=== PATIENT | female | born 1955 | race Caucasian/White ===

== ENCOUNTER 2025-01-05 19:35 | Inpatient (IN) | payer MEDICARE, SELFPAY ==
[2025-01-05] VITALS (7 sets, daily range): BP systolic 112–145; BP diastolic 55–98; PULSE 97–100; RESP 14–16; TEMP 36.3; O2SAT 92–98; BMI 40.9
--- NOTE | 2025-01-05 20:32 | CT_ITS ---
PROCEDURE: ABDOMEN/PELVIS WITHOUT CONT 01/05/2025 REASON FOR EXAM: KIDNEY STONE TECHNIQUE: Abdomen and pelvis CT without intravenous contrast. Noncontrast technique limits evaluation of the abdominal and pelvic viscera. Coronal and Sagittal reconstruction series were provided. One or more dose reduction techniques were used (e.g., Automated exposure control, adjustment of the mA and/or kV according to patient size, use of iterative reconstruction technique). PATIENT PREPARATION: Per protocol ORAL CONTRAST TYPE: None. COMPARISON: None. FINDINGS: Lung bases: Bibasilar atelectasis. Coronary artery calcifications. Liver: The unopacified liver is normal in size. No biliary ductal dilation. Gallbladder: No radiopaque stones within the gallbladder. Spleen: Normal in size. Pancreas: The unopacified pancreas is unremarkable. Adrenals: No adrenal mass. Kidneys: Obstructing stone within the proximal left ureter measuring approximately 1.2 cm (coronal image 69) with mild hydroureteronephrosis. Moderate left perinephric stranding. Unremarkable right kidney. Bladder: Grossly unremarkable. Reproductive Organs: Surgically absent. Bowel: The bowel loops are normal caliber. No ascites or pneumoperitoneum. Moderate distal colonic diverticulosis. No inflammatory mass in the expected region of the appendix. Lymph nodes: No suspicious lymphadenopathy. Vasculature: Moderate calcific plaque of the aortoiliac vessels. Bones: Thoracolumbar spondylosis. Prior total right hip arthroplasty. CT/Abdomen/Pelvis without Cont IMPRESSION: Obstructing stone within the proximal left ureter with mild hydroureteronephros is. Reading Location: [id number]
--- NOTE | 2025-01-05 20:32 | EX.ED.DYSGE1 ---
HPI History of Present Illness Chief Complaint: Flank Pain Informant: patient Narrative Narrative: Patient is a 69-year-old female with known history of kidney stones, hypertension, obesity, hyperlipidemia and type 2 diabetes mellitus presenting with worsening right flank pain. She states the pain started 1 week ago and she has had intermittent left flank pain. It became worse today. She states it started get better on 9 AM. Her apply lidocaine to the area and that did seem to help a little bit. She took her home oxycodone (it sounds like something they had leftover) with no significant relief. She has had associated nausea and vomiting. She denies any radiation of the pain. Initially she tells me nothing makes the pain worse but then she notes it is also worse with movement. She denies any urinary symptoms. Denies any fever or chills. Denies any change in her bowel habits. No other complaints or concerns reported at this time. [facility] Medical History no medical history Home Medications ?Medication ?Instructions ?Recorded ?Last Taken ?Type aspirin 81 mg tablet,delayed 81 mg PO QHS 08/21/15 01/04/25 History release (Adult Low Dose Aspirin) hydrochlorothiazide 12.5 mg capsule 12.5 mg PO DAILY 08/21/15 01/05/25 History metformin 500 mg tablet 1,000 mg PO BIDCM dm 08/21/15 01/05/25 History omega-3 fatty acids-fish oil 340 1 ea PO DAILY 08/21/15 01/05/25 History mg-1,000 mg capsule (Fish Oil) simvastatin 40 mg tablet 40 mg PO QHS 08/21/15 01/04/25 History biotin 1 mg capsule 1 mg PO DAILY pain 01/05/25 01/05/25 History cholecalciferol (vitamin D3) 50 2,000 unit PO DAILY supplement 01/05/25 01/05/25 History mcg (2,000 unit) tablet (Vitamin D3) glimepiride 1 mg tablet 0.5 mg PO DAILY dm 01/05/25 01/05/25 History hydroxychloroquine 200 mg tablet 400 mg PO DAILY oa 01/05/25 01/05/25 History leucovorin calcium 5 mg tablet 5 mg PO QWEEK 01/05/25 01/01/25 History losartan 50 mg tablet 50 mg PO DAILY bp 01/05/25 01/05/25 History methotrexate sodium 2.5 mg tablet 25 mg PO QWEEK 01/05/25 01/01/25 History metoprolol succinate 50 mg 50 mg PO DAILY heart 01/05/25 01/05/25 History tablet,extended release 24 hr omeprazole 20 mg capsule,delayed 20 mg PO DAILY gerd 01/05/25 01/05/25 History release potassium chloride 10 mEq 10 meq PO DAILY supplment 01/05/25 01/05/25 History tablet,extended release prednisone 1 mg tablet 3 mg PO DAILY oa 01/05/25 01/05/25 History Allergy/AdvReac Type Severity Reaction Status Date / Time lisinopril AdvReac COUGH Verified 01/05/25 19:36 Family History no significant family his Surgical History no surgical history Social History Smoking Status: Former smoker ROS ROS ED Constitutional Constitutional ED: Reports sweats; Denies chills or fever(s) Cardiovascular Cardiovascular: Denies chest pain Respiratory/Chest Respiratory/Chest: Denies cough Gastrointestinal Gastrointestinal: Reports abdominal pain, nausea and vomiting; Denies constipation or diarrhea Genitourinary Genitourinary ED: Denies dysuria, hematuria or urinary frequency Musculoskeletal Musculoskeletal: Reports back pain Integumentary Denies rash Neurologic Neurologic: Denies paresthesias or weakness Hematologic/Lymphatic Hematologic/Lymphatic: Denies easy bleeding or easy bruising EXAM Physical Exam Const Vital Signs: 01/05/25 19:36 01/05/25 20:36 01/05/25 20:47 Temperature 97.4 F L Temperature Source Temporal Pulse Rate 97 99 Respiratory Rate 14 Blood Pressure 140/98 H 145/69 H Blood Pressure Mean 112 94 Pulse Ox 98 97 Oxygen Delivery Method Room Air Room Air 01/05/25 21:00 01/05/25 22:00 Temperature Temperature Source Pulse Rate 100 100 Respiratory Rate Blood Pressure 143/64 H 132/75 H Blood Pressure Mean 90 94 Pulse Ox 92 Oxygen Delivery Method Room Air Positive well nourished and well developed Constitutional Narrative: Patient uncomfortable appearing but nontoxic. General Appearance ED: well developed HEENT Reports moist mucous membranes Neck supple Chest Wall inspection of chest normal Resp normal respiratory effort and clear to auscultation bilaterally Cardio regular rate and regular rhythm Cardio Narrative: 2+ DP pulses present GI normal to inspection, nondistended, normoactive bowel sounds and non-tender GI Narrative: Patient points to her left upper quadrant closer to the mid axillary line as her area of pain. Auscultation: normoactive bowel sounds Palpation: soft; Negative for tender or guarding Back/Spine no CVA tenderness Thoracic Spine / Upper Back: Negative for thoracic spinal tenderness or paraspinal muscle tenderness Lumbar Spine / Lower Back: Negative for lumbar spinal tenderness Extremity normal to inspection General Extremety ED: Negative for edema General Extremity: Negative for edema Neuro oriented x3 Sensorium / Orientation: alert Motor Exam: Negative for general weakness Psych mental status grossly normal Skin no rashes or lesions noted and no wounds MDM MDM MDM Narrative Medical decision making narrative: Patient valuated for worsening left flank pain. Differential includes muscle skeletal pain, renal colic and pyelonephritis. She denies any bowel symptoms lower suspicion for GI cause. No overlying rash or lower suspicion for shingles. Patient given IV morphine, fluids and Zofran. Will obtain CT of the abdomen pelvis without contrast, CBC, BMP and urinalysis. CBC normal. BMP normal specifically shows normal creatinine. CT of the abdomen and pelvis shows a 1.2 cm obstructing stone in the proximal left ureter with mild hydronephrosis. Patient does have pain improvement with morphine. Discussed the case with the patient and her findings. Urinalysis still pending and she ask required a straight cath for urinalysis. Patient does not feel comfortable with outpatient follow-up and would like to be admitted. Given the size of her stone and likely need for instrumentation I think this is reasonable. Case discussed with urology, Dr. Berrios. He will accept the patient to his service. Urinalysis shows questionable UTI with 50-100 white blood cells and 2+ bacteria but there is also 25-50 red blood cells. No nitrates. Urine culture sent and patient started on IV Rocephin. She is redosed with morphine. Lab Data Labs: Laboratory Results - last 24 hr 01/05/25 01/05/25 20:35 22:35 WBC 9.5 RBC 3.91 L Hgb 12.5 Hct 37.0 MCV 94.6 MCH 32.0 MCHC 33.8 RDW Std Deviation 45.4 H RDW Coeff of [employer] 13.4 Plt Count 240 MPV 9.7 Immature Gran % (Auto) 0.500 Neut % (Auto) 92.0 H Lymph % (Auto) 4.9 L [place] % (Auto) 1.4 Eos % (Auto) 0.8 Baso % (Auto) 0.4 Absolute Neuts (auto) 8.7 H Absolute Lymphs (auto) 0.46 L Nucleated RBC % 0 Sodium 136 Potassium 3.9 Chloride 97 L Carbon Dioxide 24.7 Anion Gap 14 BUN 19 Creatinine 1.13 Estim Creat Clear Calc 61.72 Est GFR (MDRD) Non-Af 52 L BUN/Creatinine Ratio 16.5 Glucose 153 H Calcium 9.7 Urine Color Yellow Urine Clarity Sl. Cloudy Urine pH 6.0 Ur Specific [place] 1.020 Urine Protein 30 H Urine Glucose (UA) Normal Urine Ketones 5 H Urine Occult Blood 250 H Urine Nitrite Negative Urine Bilirubin Negative Urine Urobilinogen Normal Ur Leukocyte Esterase 100 H Urine RBC 25-50 SEEN Urine WBC 50-100 SEEN Ur Squamous Epith Cells 0 SEEN Urine Bacteria 2+ Urine Mucus 0 SEEN Radiography Diagnostic Testing: Clinical Impression(s) from Imaging Studies Abdomen/Pelvis CT 01/05/25 20:32 IMPRESSION: Obstructing stone within the proximal left ureter with mild hydroureteronephrosis. Reading Location: [id number] Discharge Plan Dx/Rx/DC Orders Clinical Impression: Hydronephrosis with renal calculous obstruction, Left flank pain Disposition Disposition: Acute Care [facility]
[2025-01-05] MEDS: 0.9% Normal Saline (1000mL) 1,000 ML 250 ML IV (20:39)
[2025-01-05] MEDS: Ondansetron 4 MG/2 ML Vial IV (20:39)
[2025-01-05] MEDS: morphine 8 MG/ML Syringe 6 MG IV (20:40)
[2025-01-05 20:53] LABS: Absolute Lymphocyte Count 0.46 X10^3/uL (0.83-4.51); Absolute Neutrophil Count 8.7 X10^3/uL (2.0-7.7); Basophil# 0.04 X10^3/uL; Basophil% 0.4 % (0-1); Eosinophil# 0.08 X10^3/uL; Eosinophils% 0.8 % (0-5); Hemoglobin 12.5 g/dL (12.0-15.0); Lymphocyte # 0.46 X10^3/ul (0.83-4.51); Lymphocyte % 4.9 % (19-41); Mean Corp Hgb Conc 33.8 g/dL (32-36); Mean Corpuscular Volume 94.6 fL (81-99); Mean Platelet Vol. 9.7 fl (6.2-12.0); Monocyte# 0.13 X10^3/uL; Monocyte% 1.4 % (0-10); NRBC Flagged by Analyzer 0 % (0-5); Neutrophil # 8.71 X10^3/uL (2.7-7.7); Platelet Count 240 K/mm3 (150-450); RBC Distribution Width CV 13.4 % (11.6-14.6); RBC Distribution Width SD 45.4 fl (35.1-43.9); Red Blood Count 3.91 M/mm3 (4.2-5.4); White Blood Count 9.5 K/mm3 (4.4-11.0)
[2025-01-05 21:10] LABS: Anion Gap 14 (5-15); BUN 19 mg/dL (4-19); BUN/Creat Ratio 16.5 RATIO (10-20); Calcium,Total 9.7 mg/dL (7.6-11.0); Carbon Dioxide 24.7 mmol/L (21.0-32.0); Chloride 97 mmol/L (98-108); Creatinine, Serum 1.13 mg/dL (0.70-1.20); EST Glomerular Filtration Rate 52 (>60); Estimated Creatinine Clearance 61.72 ml/min (50-250); Glucose 153 mg/dL (70-99); Potassium 3.9 mmol/L (3.3-5.1); Sodium Level 136 mmol/L (133-145)
[2025-01-05 22:45] LABS: Mucous, Urine 0 SEEN /hpf (<or=2+); Squamous Epithelial Cells - UA 0 SEEN /hpf (5-10)
[2025-01-05 22:48] LABS: Color, Urine Yellow (Yellow); Glucose, Dipstick Normal (Normal); Ketone-Dipstick 5 mg/dl (Negative); Leukocyte Esterase-Dipstick 100 /ul (Negative); Nitrite-Dipstick Negative (Negative); Occult Blood-Urine 250 /ul (Negative); Protein-Dipstick 30 mg/dl (Negative); Urine Bilirubin Dipstick Negative (Negative); Urine Clarity Sl. Cloudy (Clear); Urine Urobilinogen Normal (Normal)
[2025-01-05 22:57] LABS: Bacteria 2+ /hpf (None Seen)
[2025-01-05 22:59] LABS: White Blood Cells 50-100 SEEN /hpf (0-5)
[2025-01-05 23:01] LABS: Red Blood Cells-Urine 25-50 SEEN /hpf (0-5)
[2025-01-05] MEDS: Ketorolac 15 MG/ML Vial IV (23:29)
[2025-01-05] MEDS: Morphine 4 MG/ML Syringe IV (23:30)
[2025-01-06] VITALS (46 sets, daily range): BP systolic 66–202; BP diastolic 29–159; PULSE 81–129; RESP 18–30; TEMP 3.4–38.7; O2SAT 89–100; BMI 38.9
[2025-01-06] MEDS: 0.9% Normal Saline (1000mL) 1,000 ML 50 ML IV ×2 (01:47→10:41)
[2025-01-06 03:24] LABS: Hemoglobin A1c 6.2 % (<=5.6)
[2025-01-06 06:42] LABS: Bedside Glucose 123 mg/dL (74-106)
[2025-01-06] MEDS: Ketorolac 15 MG/ML Vial IV ×2 (08:07→16:00)
[2025-01-06] MEDS: 0.9% Saline Lock 10 ML Syringe IV (08:07)
--- NOTE | 2025-01-06 08:42 | PCM.HP.STD ---
HPI - General General Date of Admission: 01/06/25 Date of Service: 01/05/25 Chief Complaint: left obstructing kidney stone HPI Narrative SHAWN DIOP, is a 69 F who presents with severe pain due to a large left obstructiong kidney stone. plan to take to surgery today. [facility] Medical History HLD (hyperlipidemia) HTN (hypertension) Diabetes Osteoarthritis Sleep apnea Medical History no medical history Home Medications ?Medication ?Instructions ?Recorded ?Last Taken ?Type aspirin 81 mg tablet,delayed 81 mg PO QHS 08/21/15 01/04/25 History release (Adult Low Dose Aspirin) hydrochlorothiazide 12.5 mg capsule 12.5 mg PO DAILY 08/21/15 01/05/25 History metformin 500 mg tablet 1,000 mg PO BIDCM dm 08/21/15 01/05/25 History omega-3 fatty acids-fish oil 340 1 ea PO DAILY 08/21/15 01/05/25 History mg-1,000 mg capsule (Fish Oil) simvastatin 40 mg tablet 40 mg PO QHS 08/21/15 01/04/25 History biotin 1 mg capsule 1 mg PO DAILY pain 01/05/25 01/05/25 History cholecalciferol (vitamin D3) 50 2,000 unit PO DAILY supplement 01/05/25 01/05/25 History mcg (2,000 unit) tablet (Vitamin D3) glimepiride 1 mg tablet 0.5 mg PO DAILY dm 01/05/25 01/05/25 History hydroxychloroquine 200 mg tablet 400 mg PO DAILY oa 01/05/25 01/05/25 History leucovorin calcium 5 mg tablet 5 mg PO QWEEK 01/05/25 01/01/25 History losartan 50 mg tablet 50 mg PO DAILY bp 01/05/25 01/05/25 History methotrexate sodium 2.5 mg tablet 25 mg PO QWEEK 01/05/25 01/01/25 History metoprolol succinate 50 mg 50 mg PO DAILY heart 01/05/25 01/05/25 History tablet,extended release 24 hr omeprazole 20 mg capsule,delayed 20 mg PO DAILY gerd 01/05/25 01/05/25 History release potassium chloride 10 mEq 10 meq PO DAILY supplment 01/05/25 01/05/25 History tablet,extended release prednisone 1 mg tablet 3 mg PO DAILY oa 01/05/25 01/05/25 History Allergy/AdvReac Type Severity Reaction Status Date / Time lisinopril AdvReac COUGH Verified 01/05/25 19:36 Family History no significant family his Surgical History Hip joint replacement status Surgical History no surgical history Social History Smoking Status: Former smoker ROS Constitutional Constitutional: Denies chills, fever(s) or malaise Eyes Eyes: Denies blurry vision or change in vision ENT HEENT: Reports none Cardiovascular Cardiovascular: Denies chest pain or palpitations Respiratory/Chest Respiratory/Chest: Denies cough or shortness of breath with exertion Gastrointestinal Gastrointestinal: Denies abdominal pain, constipation or diarrhea Musculoskeletal Musculoskeletal: Denies back pain, joint stiffness or joint swelling Integumentary Integumentary: Denies dry skin, jaundice, lesions or rash Neurologic Neurologic: Denies confusion, syncope or weakness Psychiatric Psychiatric: Reports none; Denies anxiety or depression Endocrine Endocrinology: Denies excessive sweating, fatigue or flushing Hematologic/Lymphatic Hematologic/Lymphatic: Denies anemia, easy bleeding or easy bruising Vital Signs Vital Signs Vital Signs: 01/05/25 19:36 01/05/25 20:36 01/05/25 20:47 Temperature 97.4 F L Temperature Source Temporal Pulse Rate 97 99 Pulse Strength Respiratory Rate 14 Respiratory Effort Respiratory Depth Respiratory Pattern Blood Pressure 140/98 H 145/69 H Blood Pressure Mean 112 94 Blood Pressure Source Blood Pressure Position Blood Pressure Location Pulse Ox 98 97 Oxygen Delivery Method Room Air Room Air Oxygen Flow Rate (L/min) 01/05/25 21:00 01/05/25 22:00 01/05/25 23:00 Temperature Temperature Source Pulse Rate 100 100 99 Pulse Strength Respiratory Rate Respiratory Effort Respiratory Depth Respiratory Pattern Blood Pressure 143/64 H 132/75 H 112/55 L Blood Pressure Mean 90 94 74 Blood Pressure Source Blood Pressure Position Blood Pressure Location Pulse Ox 92 93 Oxygen Delivery Method Room Air Room Air Oxygen Flow Rate (L/min) 01/05/25 23:04 01/05/25 23:04 01/06/25 00:00 Temperature 97.4 F L 97.4 F L Temperature Source Oral Pulse Rate 97 97 93 Pulse Strength Respiratory Rate 16 16 Respiratory Effort Respiratory Depth Respiratory Pattern Blood Pressure 112/55 L 112/55 L 111/58 L Blood Pressure Mean 74 74 75 Blood Pressure Source Blood Pressure Position Blood Pressure Location Pulse Ox 93 93 Oxygen Delivery Method Room Air Oxygen Flow Rate (L/min) 01/06/25 01:04 01/06/25 01:12 01/06/25 05:42 Temperature 97.9 F 98 F Temperature Source Temporal Temporal Pulse Rate 89 81 Pulse Strength Respiratory Rate 20 H 18 Respiratory Effort Normal Non-Labored Respiratory Depth Normal Respiratory Pattern Normal Blood Pressure 103/59 L 113/57 L Blood Pressure Mean 73 75 Blood Pressure Source Monitor Monitor Blood Pressure Position Semi-Fowlers Semi-Fowlers Blood Pressure Location Left Forearm Left Forearm Pulse Ox 94 98 Oxygen Delivery Method Room Air Room Air Nasal Cannula Oxygen Flow Rate (L/min) 2 01/06/25 07:59 01/06/25 07:59 01/06/25 08:03 Temperature 98.7 F Temperature Source Oral Pulse Rate 83 Pulse Strength Normal (2+) Respiratory Rate 18 Respiratory Effort Normal Non-Labored Respiratory Depth Normal Respiratory Pattern Normal Blood Pressure 130/57 H Blood Pressure Mean 81 Blood Pressure Source Monitor Blood Pressure Position Semi-Fowlers Blood Pressure Location Right Forearm Pulse Ox 96 Oxygen Delivery Method Nasal Cannula Nasal Cannula Oxygen Flow Rate (L/min) 2 2 01/06/25 08:07 Temperature Temperature Source Pulse Rate Pulse Strength Respiratory Rate Respiratory Effort Respiratory Depth Respiratory Pattern Blood Pressure Blood Pressure Mean Blood Pressure Source Blood Pressure Position Blood Pressure Location Pulse Ox 95 Oxygen Delivery Method Nasal Cannula Oxygen Flow Rate (L/min) 2 Weight Weight: 112.774 kg Body Mass Index (BMI) 38.9 Physical Exam Const alert and oriented x3 General Appearance: cooperative HEENT normocephalic, head/scalp atraumatic, EAC's normal and TM's normal bilaterally Eyes PERRL and EOMs intact bilaterally Pupil: sluggish Neck no lymphadenopathy, supple and no JVD General: trachea midline Lymph Lymphatic: no lymphadenopathy noted, lymphedema and lymphadenopathy Resp normal respiratory effort, normal air movement and clear to auscultation bilaterally Cardio regular rate, regular rhythm and peripheral pulses 2+ throughout GI soft to palpation, non-tender and non-distended Extremity normal capillary refill and no clubbing, cyanosis or edema General Extremity: no tenderness to palpation of joints or extremities Skin no rashes or lesions noted General Skin Exam: turgor normal Lesions: no lesions Rashes: no rashes Neuro CN's II-XII intact bilaterally Speech: speech normal Motor Exam: strength 5/5 throughout; Negative for general weakness Psych thought process normal, cooperative and affect normal Appearance: appropriate Results Medical Records Data Attestation: I reviewed the patient's medical records Lab / Micro Data Attestation: I reviewed the patient's lab results. 01/05/25 20:35 01/05/25 20:35 Labs: Laboratory Results - last 24 hr 01/05/25 20:35: WBC 9.5, RBC 3.91 L, Hgb 12.5, Hct 37.0, MCV 94.6, MCH 32.0, MCHC 33.8, RDW Std Deviation 45.4 H, RDW Coeff of Kodak 13.4, Plt Count 240, MPV 9.7, Immature Gran % (Auto) 0.500, Neut % (Auto) 92.0 H, Lymph % (Auto) 4.9 L, [place] % (Auto) 1.4, Eos % (Auto) 0.8, Baso % (Auto) 0.4, Absolute Neuts (auto) 8.7 H, Absolute Lymphs (auto) 0.46 L, Nucleated RBC % 0, Sodium 136, Potassium 3.9, Chloride 97 L, Carbon Dioxide 24.7, Anion Gap 14, BUN 19, Creatinine 1.13, Estim Creat Clear Calc 61.72, Est GFR (MDRD) Non-Af 52 L, BUN/Creatinine Ratio 16.5, Glucose 153 H, Hemoglobin A1c 6.2 H, Calcium 9.7 01/05/25 22:35: Urine Color Yellow, Urine Clarity Sl. Cloudy, Urine pH 6.0, Ur Specific [place] 1.020, Urine Protein 30 H, Urine Glucose (UA) Normal, Urine Ketones 5 H, Urine Occult Blood 250 H, Urine Nitrite Negative, Urine Bilirubin Negative, Urine Urobilinogen Normal, Ur Leukocyte Esterase 100 H, Urine RBC 25-50 SEEN, Urine WBC 50-100 SEEN, Ur Squamous Epith Cells 0 SEEN, Urine Bacteria 2+, Urine Mucus 0 SEEN 01/06/25 06:21: POC Glucose 123 H Imaging Radiology Impression Abdomen/Pelvis CT 01/05/25 20:32 IMPRESSION: Obstructing stone within the proximal left ureter with mild hydroureteronephrosis. Reading Location: [id number] Assessment & Plan Assessment/Plan (1) Left flank pain: (2) Hydronephrosis with renal calculous obstruction: PLAN: Plan to take to surgery today for cystoscopy left ureteroscopy laser lithotripsy of stone and stent placement
--- NOTE | 2025-01-06 08:49 | DCINST_ITS ---
Discharge Instructions Diet Discharge Diet: No restrictions DC O2, CPAP, BIPAP needs Home O2 Discharge instructions: No Dressing / Incision Discharge Activity: Return to Normal Activity and May Not Drive (while taking narcotic pain medications.) Dressing / Incision Call your doctor if you observe: Fever of 101 or Higher Follow Up Care Please Follow Up With: Adithya Berrios MD When: Call [phone] for an appointment to remove stent in 7 -10 days Test Results: Test results from this visit will be discussed in further detail at your follow- up appointment, if applicable. Discharge Plan Admission Admit Date/Time: 01/06/25 00:26 Primary Reason for Your Visit: laser stone and stent Attending Provider: Adithya Berrios Primary Care Provider: Malick Mccoy Discharge Orders/Prescriptions Prescriptions: New ibuprofen 600 mg tablet 600 mg PO Q6H PRN (Reason: pain) Qty: 20 0RF acetaminophen 500 mg capsule 500 mg PO Q4H PRN (Reason: pain) Qty: 20 0RF phenazopyridine [Pyridium] 100 mg tablet 100 mg PO TID PRN (Reason: burning) Qty: 14 0RF Continued metformin 500 MG tablet 1,000 mg PO BIDCM Patient Comments: lowers blood sugar aspirin [Adult Low Dose Aspirin] 81 MG tablet,delayed release (DR/EC) 81 mg PO QHS Patient Comments: blood thinner simvastatin 40 MG tablet 40 mg PO QHS Patient Comments: lowers cholesterol hydrochlorothiazide 12.5 MG capsule 12.5 mg PO DAILY Patient Comments: blood pressure Fish Oil 1 EACH capsule 1 ea PO DAILY Patient Comments: supplement glimepiride 1 mg tablet 0.5 mg PO DAILY losartan 50 mg tablet 50 mg PO DAILY methotrexate sodium 2.5 mg tablet 25 mg PO QWEEK Patient Comments: taking every Mon for imflammatory arthritis hydroxychloroquine 200 mg tablet 400 mg PO DAILY potassium chloride 10 mEq tablet extended release 10 meq PO DAILY prednisone 1 mg tablet 3 mg PO DAILY omeprazole 20 mg capsule,delayed release(DR/EC) 20 mg PO DAILY metoprolol succinate 50 mg tablet extended release 24 hr 50 mg PO DAILY leucovorin calcium 5 mg tablet 5 mg PO QWEEK Patient Comments: Take on wednesdays cholecalciferol (vitamin D3) [Vitamin D3] 50 mcg (2,000 unit) tablet 2,000 unit PO DAILY biotin 1 mg capsule 1 mg PO DAILY Referrals / Follow Up: Malick Mccoy MD [Primary Care Provider] - Disposition Disposition (needs filled in before D/C Order can be placed): Home, Self Care
--- NOTE | 2025-01-06 09:41 | PRE.ANES_ITS ---
ASA Classification* ASA Classification ASA Classification: 3 and E Assessment & Plan Anesthesia* Anesthesia Assessment Anesthesia Assessment: Discussed sedation and/or anesthesia options, risks, benefits, and alternatives with patient/parents/legal guardian/POA. Questions invited. The patient/parents/legal guardian/POA seems to understand and agrees to proceed with anesthesia plan. Reviewed the physical assessment, medical history, allergy history and patient home medications list prior to surgery/procedure/anesthetic and documented any changes. Performed airway and anesthesia risk assessments. Anesthesia Type Anesthesia Type: General Anesthesia Focused Assessment* Temperature: 98.7 F Pulse Rate: 83 Blood Pressure: 130/57 Respiratory Rate: 18 Pulse Ox: 95 Oxygen Flow Rate (L/min): 2 Airway Assessment Mouth opens: >3 cm Mallampati Score: II Focused Labs Anesthesia Preop lab: CBC WBC 9.5 K/mm3 (4.4-11.0) 01/05/25 20:35 01/05/25 RBC 3.91 M/mm3 (4.2-5.4) L 01/05/25 20:35 01/05/25 Hgb 12.5 g/dL (12.0-15.0) 01/05/25 20:35 01/05/25 Hct 37.0 % (37-47) 01/05/25 20:35 01/05/25 Plt Count 240 K/mm3 (150-450) 01/05/25 20:35 01/05/25 CHEMISTRY Potassium 3.9 mmol/L (3.3-5.1) 01/05/25 20:35 01/05/25 Sodium 136 mmol/L (133-145) 01/05/25 20:35 01/05/25 BUN 19 mg/dL (4-19) 01/05/25 20:35 01/05/25 Creatinine 1.13 mg/dL (0.70-1.20) 01/05/25 20:35 01/05/25 Glucose 153 mg/dL (70-99) H 01/05/25 20:35 01/05/25 POC Glucose 123 mg/dL (74-106) H 01/06/25 06:21 01/06/25 COAG Pre-Assessment Diagnosis/Proposed Procedure Planned Operative Procedure(s): Cysto, Laser ureteral stone stent Anesthesia History Anesthesia History - supervisor powdered sugar: Anesthesia History - supervisor powdered sugar Hx Hospitalization Any Problems With Anesthesia No 01/06/25 01:45 Cholinesterase deficiency No 01/06/25 01:45 You/Your Family Experience No 01/06/25 01:45 fever (hyperthermia) with Relationship Recent Exposure to Contagious No 01/06/25 01:45 Disease Does patient have nerve No 01/06/25 01:45 stimulator Patient instructed to have device shut off --Does patient have Pacemaker No 01/06/25 04:40 or ICD? When Was Last Pacemaker Check QUESTION #4 FULL TEXT: You/Your Family Experience fever (hyperthermia) with Anesthesia Last Oral Intake Last Oral intake: Last Oral Intake NPO since 00:00 01/06/25 04:40 Meds taken in AM with sips of water? Meds patient instructed to take am of surgery PONV PONV - supervisor powdered sugar: PONV - supervisor powdered sugar Female HX of Motion Sickness HX of N/V After Surgery Non-Smoker Duration of Surgery greater than 60 minutes Number of Risk Factors PONV Score Height & Weight Height & Weight: Anesthesia: Height & Weight Height 5 ft 7 in 01/06/25 04:40 Weight: 112.774 kg 01/06/25 04:40 Body Mass Index (BMI) 38.9 01/06/25 04:40 Respiratory Assessment Respiratory Assessment - supervisor powdered sugar: Respiratory Tract Infection Hx - supervisor powdered sugar Hx Respiratory Tract Infection No 01/06/25 01:45 STOP Sleep Apnea STOP Sleep Apnea - supervisor powdered sugar: STOP Sleep Apnea - supervisor powdered sugar Hx Hypertension Yes 01/06/25 01:02 Hx Sleep Apnea Yes 01/06/25 01:02 CPAP Yes 01/06/25 01:02 BIPAP No 01/06/25 01:02 Do you snore loudly (louder than talking or can be heard Do you often feel tired/ fatigued/ sleepy during daytime? Has anyone observed you stop breathing during sleep? STOP Results Positive 01/06/25 01:02 QUESTION #5 FULL TEXT : Do you snore loudly (louder than talking or can be heard through closed doors)? Tobacco Use History Tobacco Use History - supervisor powdered sugar: Tobacco Use History - supervisor powdered sugar Tobacco Use Smoking Status Former smoker 01/06/25 01:02 Hx Tobacco Use No 01/06/25 01:02 Years Smoking Packs Smoked per Day Smoking Cessation Date was No - quit smoking greater 01/06/25 01:02 within the last 15 years than 15 years ago Hx Smoking Cessation Date Hx Smoking Cessation No 01/06/25 01:02 Counseling Hematologic Medial History Hematologic Hx - supervisor powdered sugar: Hematologic Medical Hx - international affairs vice president Hx of Blood Transfusion No 01/06/25 01:02 Hx of Transfusion in last 3 No 01/06/25 01:02 Months Date of Last Transfusion (if within last 3 months) Ever experience any problems No 01/06/25 01:02 with transfusion(s)? Specify any problems Hx of Preganancy in last 3 No 01/06/25 01:02 Months Nurse Filling Out Transfusion DREDICK 01/06/25 01:02 & Questions: Date: 01/06/25 01/06/25 01:02 Time: 01:02 01/06/25 01:02 Patient unable to answer at this time (ie. confused, unrespo /Reproduction History /Reproductive History - supervisor powdered sugar: /Reproductive Hx- supervisor powdered sugar Hx Now No 01/06/25 01:45 Gestational Age (in weeks): EDC: Hx Hx Para Hx Section SAB No 01/06/25 01:45 Active Medications Active Medications: Current Medications Generic Name Dose Route Start Last Admin Trade Name Freq PRN Reason Stop Dose Admin Acetaminophen 500 mg 01/06/25 01:26 Acetaminophen 500 Mg Tablet PO Q4H PRN PRN Pain 1-10 or Fever Sodium Chloride 250 mls @ 15 mls/hr 01/06/25 00:53 IV .[id number] PRN Saline Flush Sodium Chloride 250 mls @ 15 mls/hr 01/06/25 00:53 IV .[id number] PRN Additional IVPB Infusion Sodium Chloride 1,000 mls @ 50 mls/hr 01/06/25 01:30 01/06/25 01:47 IV 50 mls/hr .Q20H NEHA Administration Ketorolac Tromethamine 15 mg 01/06/25 02:30 01/06/25 08:07 Ketorolac 15 Mg/Ml Vial IV 01/11/25 02:31 15 mg Q6H PRN PRN Administration Pain Score 1-10 Morphine Sulfate 2 mg 01/06/25 01:26 Morphine 2 Mg/Ml Syringe IV Q4H PRN PRN Pain Score 1-10 Ondansetron HCl 4 mg 01/06/25 01:26 Ondansetron 4 Mg/2 Ml Vial IV Q6H PRN PRN NAUSEA Sodium Chloride 10 - 40 ml 01/06/25 00:53 01/06/25 08:07 0.9% Saline Lock 10 Ml Syringe IV 10 ml UD PRN Administration SALINE FLUSH PFSH Medical History HLD (hyperlipidemia) HTN (hypertension) Diabetes Osteoarthritis Sleep apnea Medical History no medical history Home Medications ?Medication ?Instructions ?Recorded ?Last Taken ?Type aspirin 81 mg tablet,delayed 81 mg PO QHS 08/21/15 History release (Adult Low Dose Aspirin) hydrochlorothiazide 12.5 mg capsule 12.5 mg PO DAILY 0 08/21/15 01/05/25 History metformin 500 mg tablet 1,000 mg PO BIDCM dm 6 01/05/25 History omega-3 fatty acids-fish oil 340 1 ea PO DAILY 6 01/05/25 History mg-1,000 mg capsule (Fish Oil) simvastatin 40 mg tablet 40 mg PO QHS 08/21/15 History biotin 1 mg capsule 1 mg PO DAILY pain 01/05/25 01/05/25 History cholecalciferol (vitamin D3) 50 2,000 unit PO DAILY ramos pplement 01/05/25 01/05/25 History mcg (2,000 unit) tablet (Vitamin D3) glimepiride 1 mg tablet 0.5 mg PO DAILY dm 01/05/25 01/05/25 History hydroxychloroquine 200 mg tablet 400 mg PO DAILY oa 01/05/25 History leucovorin calcium 5 mg tablet 5 mg PO QWEEK 01/05/25 01/01/25 History losartan 50 mg tablet 50 mg PO DAILY bp 01/05/25 0 01/05/25 History methotrexate sodium 2.5 mg tablet 25 mg PO QWEEK 01/0501/01/25 History metoprolol succinate 50 mg 50 mg PO DAILY heart 01/05/25 History tablet,extended release 24 hr omeprazole 20 mg capsule,delayed 20 mg PO DAILY gerd 0 01/05/25 01/05/25 History release potassium chloride 10 mEq 10 meq PO DAILY supplment 01/05/25 History tablet,extended release prednisone 1 mg tablet 3 mg PO DAILY oa 01/05/25 History acetaminophen 500 mg capsule 500 mg PO Q4H PRN pain #2 0 caps 01/06/25 Unknown Rx ibuprofen 600 mg tablet 600 mg PO Q6H PRN pain #20 t abs 01/06/25 Unknown Rx phenazopyridine 100 mg tablet 100 mg PO TID PRN burnin g #14 tabs 01/06/25 Unknown Rx (Pyridium) Allergy/AdvReac Type Severity Reaction Status Date / Time lisinopril AdvReac COUGH Verified 01/05/25 19:36 Family History no significant family his Surgical History Hip joint replacement status Surgical History no surgical history Social History Smoking Status: Former smoker Review of Systems (Anesthesia) ROS Narrative System reviewed and no additional complaints, except as documented.
--- NOTE | 2025-01-06 10:21 | PCM.OPRPT ---
Operative Report (Standard) Operative Information Date of Procedure: 01/06/25 Pre-Operative Diagnosis: Left proximal obstructing ureteral calculus Post-Operative Diagnosis: The same Surgery/Procedure Performed: Cystoscopy left ureteroscopy, balloon dilation of the left ureter, left stent placement green chain off bearer: No Type of Anesthesia: General RN Documented Start/Stop Times: Operation Date: 01/06/25 11:10 Case Time Anesthesia Start 01/06/25 09:54 Into Room 01/06/25 09:54 Procedure Start 01/06/25 10:10 Procedure Start Time: 10:10 Procedure Stop Time: 10:22 Select all DRAINS/GRAFTS/IMPLANTS that apply: Drains Drain details: 6 x 26 stent Estimated Blood Loss: None Specimen collected: No Description of surgery: Patient was taken back to the operating room after smooth duction of anesthesia she was placed in dorsolithotomy position. Went into the bladder with a 21 Tamazight rigid cystourethroscope, drained the bladder identified the left ureteral orifice put a wire up the left ureter then put a balloon dilator balloon dilated the distal left ureter I then went up the left ureter with the ureteroscope once I got into the kidney left kidney the stone was pushed back into the kidney and within the kidney had murky infected looking urine so at this point decided not to laser the stone and then I backed out put a wire up in the left kidney and then placed a stent up on the left side. So successful stent placement the left side stone could be seen on x-ray urine looked infected so did not laser patient anesthetic reversed taken back to the PACU in good condition we will plan to send her home with antibiotics and will plan for lithotripsy later this week. Surgical Findings: Stone pushed up into the kidney the kidney urine looked infected so only place a stent Complications Complications: No Admit VTE Documentation VTE Present on Admission: No VTE Mechan Device Prophylaxis: SCD's VTE Pharm Prophylaxis ordered?: No
--- NOTE | 2025-01-06 10:41 | PCM.POST.ANE ---
Anesthesia: Postop Eval I Current Vital Signs Temperature: 97.8 F Pulse Rate: 110 Blood Pressure: 136/100 Respiratory Rate: 20 Pulse Ox: 96 Oxygen Delivery Method: Nasal Cannula Oxygen Flow Rate (L/min): 3 Assessment Airway patent: Yes Spontaneous unlabored respirations: Yes Mental status: Awake nausea: No Vomiting: No Anesthesia Complication: No Fluid Hydration Crystalloid volume administer (ml): 150 Total IV fluid infused: 150 Progress Note Anesthesia document: Postop Eval 1 completed: Yes
--- NOTE | 2025-01-06 10:43 | PCM.POSTANE2 ---
Anesthesia Postop Eval I Sum Postop Eval Completion status Anesthesia document: Postop Eval 1 completed: Yes Anesthesia Postop Eval I Summary Anesthesia Postop Eval I Summary: Anesthesia Postop Eval I: Assessment Summary Airway patent Yes 01/06/25 10:42 Spontaneous unlabored Yes 01/06/25 10:42 respirations Mental status Awake 01/06/25 10:42 nausea No 01/06/25 10:42 Vomiting No 01/06/25 10:42 Anesthesia Postop Eval I: Fluid Summary Crystalloid volume administer 150 01/06/25 10:42 (ml) Colloids volume administered ( ml) Blood Product volume administered (ml) Total IV fluid infused 150 01/06/25 10:42 Anesthesia Postop Eval I: Summary Notes Anesthesia Complication No 01/06/25 10:42 Anesthesia Complication Comment: Post-operative progress note Anesthesia: Postop Eval II Evaluation Mental status: Awake Pain Level: 0 nausea: No Vomiting: No
[2025-01-06 11:16] LABS: Bedside Glucose 103 mg/dL (74-106)
--- NOTE | 2025-01-06 11:33 | PN.URO_ITS ---
Subjective Subjective Urine was infected, so only the stent was placed Postop the patient has lo is tachycardic and appears to be developing sepsis, consult to the hospitalist will put the patient and PCU for now. Discharge Start broad-spectrum antibiotics Objective Data Objective Data Vital Signs: Vital Signs Temp Pulse Resp BP Pulse Ox O2 Del Method O2 Flow Rate 97.8 F 120 H 24 H 172/85 H 92 Simple Mask 8 01/06/25 10:42 01/06/25 11:25 01/06/25 11:25 01/06/25 11:25 01/06/25 11:25 01/06/25 11:01/06/25 11:25 Oxygen Flow Rate (L/min) 8 Oxygen Delivery Method Simple Mask Weight: 112.774 kg Body Mass Index (BMI) 38.9 Intake & Output: Intake and Output for Last 24 Hours 01/04/25 01/05/25 01/06/25 23:59 23:59 23:59 Intake Total 1999 Output Total 0 / 0 Balance 1999 Lab / Micro Data 01/05/25 20:35 01/05/25 20:35 Labs: Laboratory Results - last 24 hr 01/05/25 20:35: WBC 9.5, RBC 3.91 L, Hgb 12.5, Hct 37.0, MCV 94.6, MCH 32.0, MCHC 33.8, RDW Std Deviation 45.4 H, RDW Coeff of Kodak 13.4, Plt Count 240, MPV 9.7, Immature Gran % (Auto) 0.500, Neut % (Auto) 92.0 H, Lymph % (Auto) 4.9 L, [place] % (Auto) 1.4, Eos % (Auto) 0.8, Baso % (Auto) 0.4, Absolute Neuts (auto) 8.7 H, Absolute Lymphs (auto) 0.46 L, Nucleated RBC % 0, Sodium 136, Potassium 3.9, Chloride 97 L, Carbon Dioxide 24.7, Anion Gap 14, BUN 19, Creatinine 1.13, Estim Creat Clear Calc 61.72, Est GFR (MDRD) Non-Af 52 L, BUN/Creatinine Ratio 16.5, Glucose 153 H, Hemoglobin A1c 6.2 H, Calcium 9.7 01/05/25 22:35: Urine Color Yellow, Urine Clarity Sl. Cloudy, Urine pH 6.0, Ur Specific [place] 1.020, Urine Protein 30 H, Urine Glucose (UA) Normal, Urine Ketones 5 H, Urine Occult Blood 250 H, Urine Nitrite Negative, Urine Bilirubin Negative, Urine Urobilinogen Normal, Ur Leukocyte Esterase 100 H, Urine RBC 25- 50 SEEN, Urine WBC 50-100 SEEN, Ur Squamous Epith Cells 0 SEEN, Urine Bacteria 2+, Urine Mucus 0 SEEN 01/06/25 06:21: POC Glucose 123 H 01/06/25 10:57: POC Glucose 103 Radiography Diagnostic Testing: Radiology Impression Abdomen/Pelvis CT 01/05/25 20:32 IMPRESSION: Obstructing stone within the proximal left ureter with mild hydroureteronephrosis. Reading Location: [id number]
--- NOTE | 2025-01-06 11:44 | PCM.CONS.GEN ---
Assessment & Plan Assessment/Plan (1) Hydronephrosis with renal calculous obstruction: (2) Sepsis: PLAN: Plan Patient is a 69-year-old female who presented [facility] on 01/06/2025 for planned urology procedure. Medicine consulted postoperatively for medical management of suspected urosepsis. 1. Sepsis without shock secondary to acute pyelonephritis in setting of obstructive nephrolithiasis ? Urology primary. CT abdomen pelvis on 01/05 with 1.2 cm obstructing stone in left proximal ureter with mild hydroureteronephrosis. S/p cystoscopy with ureteral stent placement on 01/06; stone not removed due to infected appearing urine. Postoperatively developed sepsis with tachycardia, fever, MICHAEL, elevated total bilirubin and altered mentation. Treating for sepsis with 30 cc/kg of IV fluids and IV ceftriaxone for now. Follow-up urine culture. Monitor BP closely. 2. MICHAEL ? Creatinine 1.57 postoperatively, baseline around 1.1. Presume secondary to sepsis. Monitor BMP and urine output daily. De La Torre catheter placed for accurate I's and O's. 3. Elevated troponin level ? Initial troponin 85, repeat pending. Mild ST depressions noted in lateral leads on EKG. No chest pain noted. Strongly suspect demand ischemia secondary to sepsis. Follow-up repeat troponins. 4. Postoperative hypoxia ? Patient requiring up to 6 L nasal cannula postoperatively to maintain appropriate saturations. Was placed on nonrebreather as she is a mouth breather with saturations in the mid to high 90s. Suspect hypoxia is primarily due to poor respiratory drive in setting of recent anesthesia. Wean supplemental oxygen as able. Will need to monitor for volume overload/pulmonary edema in setting of sepsis fluids. Chronic medical conditions: ? Class II obesity with DEBBIE: BMI 38 on admit. Complicates hospital course, care and prognosis. Continue CPAP at night. ? Nonobstructive CAD, hypertension, hyperlipidemia: Continue home aspirin and statin. Holding home BP meds in setting of sepsis. ? Type 2 diabetes mellitus: Holding home oral medications. Will treat with sliding scale insulin with meals while inpatient, adjust as needed. ? RA: Continue home meds. ? GERD: Continue home PPI. DVT prophylaxis: Heparin subcu CODE STATUS: Full code, verified Total clinical time spent by myself addressing the patient's medical issues, reviewing all the data, and collaborating with patient's care team: 50 minutes. HPI Consult Data Date of Consult: 01/06/25 HPI Narrative Reason for Consultation: Urosepsis HPI Narrative: SHAWN DIOP, is a 69 F who presented to [facility] on 01/06/2025 for planned urology procedure. Medicine consulted postoperatively for medical management of suspected urosepsis. Patient was found on CT imaging on 01/05 to have an obstructing stone within the proximal left ureter with mild hydroureteronephrosis. Had cystoscopy done with Dr. Berrios today. During the procedure, he noted that the urine appeared quite infected; ureteral stent was placed but the stone was not removed. Postoperatively patient became tachycardic and febrile concerning for urosepsis. I saw the patient at bedside shortly after she arrived to the PCU from PACU. She was somewhat confused appearing but notably was alert and oriented x 3. She had been on 6 L nasal cannula in PACU to maintain appropriate oxygen saturations but was noted to have significant mouth breathing and was placed on nonrebreather in PCU. She was breathing comfortably on rebreather with oxygen saturations in the mid to high 90s for me. She currently denies any pain or discomfort. Patient's and other family members were present at bedside. They noted that patient had flank pain yesterday presumed secondary to the kidney stone but no infectious symptoms until today. No other new concerns at this time. [facility] Medical History HLD (hyperlipidemia) HTN (hypertension) Diabetes Osteoarthritis Sleep apnea Medical History no medical history Home Medications ?Medication ?Instructions ?Recorded ?Last Taken ?Type aspirin 81 mg tablet,delayed 81 mg PO QHS 08/21/15 01/04/25 History release (Adult Low Dose Aspirin) hydrochlorothiazide 12.5 mg capsule 12.5 mg PO DAILY 08/21/15 01/05/25 History metformin 500 mg tablet 1,000 mg PO BIDCM dm 08/21/15 01/05/25 History omega-3 fatty acids-fish oil 340 1 ea PO DAILY 08/21/15 01/05/25 History mg-1,000 mg capsule (Fish Oil) simvastatin 40 mg tablet 40 mg PO QHS 08/21/15 01/04/25 History biotin 1 mg capsule 1 mg PO DAILY pain 01/05/25 01/05/25 History cholecalciferol (vitamin D3) 50 2,000 unit PO DAILY supplement 01/05/25 01/05/25 History mcg (2,000 unit) tablet (Vitamin D3) glimepiride 1 mg tablet 0.5 mg PO DAILY dm 01/05/25 01/05/25 History hydroxychloroquine 200 mg tablet 400 mg PO DAILY oa 01/05/25 01/05/25 History leucovorin calcium 5 mg tablet 5 mg PO QWEEK 01/05/25 01/01/25 History losartan 50 mg tablet 50 mg PO DAILY bp 01/05/25 01/05/25 History methotrexate sodium 2.5 mg tablet 25 mg PO QWEEK 01/05/25 01/01/25 History metoprolol succinate 50 mg 50 mg PO DAILY heart 01/05/25 01/05/25 History tablet,extended release 24 hr omeprazole 20 mg capsule,delayed 20 mg PO DAILY gerd 01/05/25 01/05/25 History release potassium chloride 10 mEq 10 meq PO DAILY supplment 01/05/25 01/05/25 History tablet,extended release prednisone 1 mg tablet 3 mg PO DAILY oa 01/05/25 01/05/25 History acetaminophen 500 mg capsule 500 mg PO Q4H PRN pain #20 caps 01/06/25 Unknown Rx ciprofloxacin HCl 500 mg tablet 500 mg PO BID #14 tabs 01/06/25 Unknown Rx (Cipro) ibuprofen 600 mg tablet 600 mg PO Q6H PRN pain #20 tabs 01/06/25 Unknown Rx phenazopyridine 100 mg tablet 100 mg PO TID PRN burning #14 tabs 01/06/25 Unknown Rx (Pyridium) Allergy/AdvReac Type Severity Reaction Status Date / Time lisinopril AdvReac COUGH Verified 01/05/25 19:36 Family History no significant family his Surgical History Hip joint replacement status Surgical History no surgical history Social History Smoking Status: Former smoker ROS Constitutional Constitutional: Reports chills, fatigue and fever(s); Denies weakness Cardiovascular Cardiovascular: Denies chest pain Respiratory/Chest Respiratory/Chest: Denies cough, shortness of breath at rest or wheezing Gastrointestinal Gastrointestinal: Denies abdominal pain Genitourinary Genitourinary: Reports dysuria Musculoskeletal Musculoskeletal: Reports other Details: flank pain Physical Exam Const alert and oriented x3 Constitutional Narrative: Elderly female, class II obesity, A&Ox3 but intermittently confused and somewhat somnolent appearing, was able to answer questions with short appropriate responses, breathing comfortably on nonrebreather, otherwise laying back in bed fairly comfortably. General Appearance: cooperative HEENT normocephalic, head/scalp atraumatic, hearing grossly normal bilaterally and nasal mucous membranes and turbinates normal Eyes PERRL, EOMs intact bilaterally and conjunctivae normal Neck full ROM Chest inspection of chest normal Resp normal respiratory effort and no use of accessory muscles Resp Narrative: Breathing comfortably on nonrebreather. Mildly decreased breath sounds throughout with mild crackles in bilateral lung bases, no wheezing noted. Cardio no murmurs and peripheral pulses 2+ throughout Cardio Narrative: Tachycardic, regular rhythm. GI normal to inspection, nondistended, normoactive bowel sounds, soft to palpation, non-tender and non-distended Narrative: Mild left-sided flank tenderness noted. Bladder / Kidney Exam: bladder normal to palpation Back/Spine normal ROM Extremity normal to inspection, full ROM and no pedal edema Skin no rashes or lesions noted Lab / Micro Data 01/05/25 20:35 01/06/25 14:05 Labs: Laboratory Results - last 24 hr 01/05/25 20:35: WBC 9.5, RBC 3.91 L, Hgb 12.5, Hct 37.0, MCV 94.6, MCH 32.0, MCHC 33.8, RDW Std Deviation 45.4 H, RDW Coeff of Kodak 13.4, Plt Count 240, MPV 9.7, Immature Gran % (Auto) 0.500, Neut % (Auto) 92.0 H, Lymph % (Auto) 4.9 L, [place] % (Auto) 1.4, Eos % (Auto) 0.8, Baso % (Auto) 0.4, Absolute Neuts (auto) 8.7 H, Absolute Lymphs (auto) 0.46 L, Nucleated RBC % 0, Sodium 136, Potassium 3.9, Chloride 97 L, Carbon Dioxide 24.7, Anion Gap 14, BUN 19, Creatinine 1.13, Estim Creat Clear Calc 61.72, Est GFR (MDRD) Non-Af 52 L, BUN/Creatinine Ratio 16.5, Glucose 153 H, Hemoglobin A1c 6.2 H, Calcium 9.7 01/05/25 22:35: Urine Color Yellow, Urine Clarity Sl. Cloudy, Urine pH 6.0, Ur Specific [place] 1.020, Urine Protein 30 H, Urine Glucose (UA) Normal, Urine Ketones 5 H, Urine Occult Blood 250 H, Urine Nitrite Negative, Urine Bilirubin Negative, Urine Urobilinogen Normal, Ur Leukocyte Esterase 100 H, Urine RBC 25-50 SEEN, Urine WBC 50-100 SEEN, Ur Squamous Epith Cells 0 SEEN, Urine Bacteria 2+, Urine Mucus 0 SEEN 01/06/25 06:21: POC Glucose 123 H 01/06/25 10:57: POC Glucose 103 Imaging Radiology Impression Abdomen/Pelvis CT 01/05/25 20:32 IMPRESSION: Obstructing stone within the proximal left ureter with mild hydroureteronephrosis. Reading Location: [id number] Charges/Coding Visit Charges Inpatient E&M: 99540 Subs Hosp L3
--- NOTE | 2025-01-06 11:54 | SUR.PHASEI ---
Verbal report to Nell Campbell RN in PCU - PACU progress reported (temp 101.6, HR 128, 93% on 6Lsimple mask, IV fluids wide open and that Dr Roy will see pt on PCU) and informed that Rocephin has not been given yet. Unique in pharmacy informed that pt has been transferred to PCU 122 and to plz send Rocephin TADEO to PCU.
--- NOTE | 2025-01-06 12:24 | NURSING ---
Report called to Allyn in PCU. Pt transferred to PCU from PACU d/t increased HR and oxygen needs. Family aware of pt room change and sent to [id number]
[2025-01-06] MEDS: Ceftriaxone 1 GM/50 ML BAG IV ×2 (12:25→13:13)
--- NOTE | 2025-01-06 12:45 | EKG12_ITS ---
Test Reason : cp Blood Pressure : */* mmHG Vent. Rate : 124 BPM Atrial Rate : 124 BPM P-R Int : 150 ms QRS Dur : 78 ms QT Int : 312 ms P-R-T Axes : 52 -6 36 degrees QTcB Int : [address] & T wave abnormality, consider lateral ischemia Abnormal ECG When compared with ECG of 21-Aug-2015 12:23, Vent. rate has increased by 51 bpm Nonspecific T wave abnormality, worse in Inferior leads T wave inversion now evident in Anterior leads Confirmed by Clyde Blank ([id number]), supervising film or videotape editor JAME SANTORO ([id number]) on 01/13/2025 1:26:02 PM Referred By: Confirmed By: Clyde Blank
[2025-01-06] MEDS: 0.9% Normal Saline (1000mL) 1,000 ML 999 ML IV ×2 (12:56→13:42)
[2025-01-06] MEDS: Acetaminophen 325 MG Tablet 650 MG PO ×2 (13:01→19:02)
[2025-01-06 14:43] LABS: ALB/GLOB Ratio 1.8 RATIO (0.9-2.4); AST(SGOT) 23 U/L (<=31); Alanine Aminotransfer ALT/SGPT 17 U/L (<=34); Albumin, Serum 3.7 g/dL (3.4-4.8); Alkaline Phosphatase 116 U/L (35-104); Anion Gap 17 (5-15); BUN 27 mg/dL (4-19); BUN/Creat Ratio 17.3 RATIO (10-20); Calcium,Total 8.1 mg/dL (7.6-11.0); Carbon Dioxide 17.3 mmol/L (21.0-32.0); Chloride 104 mmol/L (98-108); Creatinine, Serum 1.57 mg/dL (0.70-1.20); EST Glomerular Filtration Rate 35 (>60); Globulin 2.1 g/dL (2.2-4.2); Glucose 104 mg/dL (70-99); Potassium 3.6 mmol/L (3.3-5.1); Protein, Total 5.7 g/dL (5.9-8.4); Sodium Level 137 mmol/L (133-145); Total Bilirubin 2.08 mg/dL (0.00-1.30)
[2025-01-06 14:44] LABS: Troponin T High Sensitivity 85 ng/L (<=14)
[2025-01-06] MEDS: Lactated Ringers 1,000 ML 999 ML IV (15:30)
[2025-01-06 16:13] LABS: Absolute Lymphocyte Count 0.15 X10^3/uL (0.83-4.51); Absolute Neutrophil Count 3.3 X10^3/uL (2.0-7.7); Basophil# 0.01 X10^3/uL; Basophil% 0.3 % (0-1); Eosinophil# 0.01 X10^3/uL; Eosinophils% 0.3 % (0-5); Hematocrit 28.6 % (37-47); Hemoglobin 9.5 g/dL (12.0-15.0); Lymphocyte # 0.15 X10^3/ul (0.83-4.51); Lymphocyte % 4.3 % (19-41); Mean Corp Hgb Conc 33.2 g/dL (32-36); Mean Corpuscular Hgb 32.1 pg (27.0-32.0); Mean Corpuscular Volume 96.6 fL (81-99); Mean Platelet Vol. 9.7 fl (6.2-12.0); Monocyte# 0.02 X10^3/uL; Monocyte% 0.6 % (0-10); NRBC Flagged by Analyzer 0 % (0-5); Neutrophil # 3.32 X10^3/uL (2.7-7.7); Neutrophil % 94.2 % (47-70); POSITIVE DIFFERENTIAL YES; POSITIVE MORPHOLOGY YES; Platelet Count 112 K/mm3 (150-450); RBC Distribution Width SD 49.1 fl (35.1-43.9); Red Blood Count 2.96 M/mm3 (4.2-5.4); White Blood Count 3.5 K/mm3 (4.4-11.0)
[2025-01-06 16:24] LABS: Troponin T High Sens 2 HR 111 ng/L (<=14)
[2025-01-06 16:50] LABS: Lactic Acid 2.4 mmol/L (0.0-2.0)
[2025-01-06 16:52] LABS: Differential Indicated SCAN CRITERIA MET
[2025-01-06 16:54] LABS: Anisocytosis 1+; Macrocytosis RARE; Ovalocyte 1+; Platelet Estimate SLT DEC (ADEQ)
[2025-01-06 16:55] LABS: Red Cell Morphology NORM C+C NORMAL (NORM C&C)
[2025-01-06 17:08] LABS: Bedside Glucose 79 mg/dL (74-106)
[2025-01-06 18:27] LABS: Troponin T High Sens 4 HR 105 ng/L (<=14)
--- NOTE | 2025-01-06 19:37 | NURSING ---
surgery brought pt to floor and pt with moaning resp rate on simple mask and only sats 92%. pt responsive to voice and answering questions to name and birthday. ext cool and dusky x4 with prolonged cap refill. pt with fever since or and pharm called for iv rocephin. iv ns hanging wide open at this time. unable to get ahold of discharge rn as off floor to stroke alert on ms3. pt placed on dash monitor for one to one.
[2025-01-06 20:02] LABS: Reflex Lactate? Y
[2025-01-06] MEDS: 0.9% Normal Saline (1000mL) 1,000 ML 125 ML IV (20:30)
[2025-01-06 20:53] LABS: Lactic Acid 1.6 mmol/L (0.0-2.0)
[2025-01-06] MEDS: LACTATED RINGERS 500 ML 999 ML IV (21:45)
[2025-01-06] MEDS: Ondansetron 4 MG/2 ML Vial IV (21:45)
[2025-01-06] MEDS: Atorvastatin Calcium 20 MG Tablet PO (22:20)
[2025-01-06] MEDS: Aspirin 81 MG TAB.CHEW PO (22:20)
[2025-01-07] VITALS (24 sets, daily range): BP systolic 80–122; BP diastolic 43–55; PULSE 77–104; RESP 14–25; TEMP 3.1–38.4; O2SAT 92–100
[2025-01-07 00:03] LABS: Bedside Glucose 79 mg/dL (74-106)
[2025-01-07] MEDS: LACTATED RINGERS 500 ML 999 ML IV (00:20)
[2025-01-07] MEDS: 0.9% Normal Saline (1000mL) 1,000 ML 125 ML IV (04:20)
[2025-01-07 06:49] LABS: Hematocrit 29.9 % (37-47); Hemoglobin 9.9 g/dL (12.0-15.0); Mean Corp Hgb Conc 33.1 g/dL (32-36); Mean Corpuscular Hgb 31.9 pg (27.0-32.0); Mean Corpuscular Volume 96.5 fL (81-99); Mean Platelet Vol. 9.7 fl (6.2-12.0); Platelet Count 115 K/mm3 (150-450); RBC Distribution Width CV 14.4 % (11.6-14.6); White Blood Count 15.6 K/mm3 (4.4-11.0)
[2025-01-07 07:12] LABS: Anion Gap 13 (5-15); BUN 30 mg/dL (4-19); BUN/Creat Ratio 17.9 RATIO (10-20); Calcium,Total 7.5 mg/dL (7.6-11.0); Carbon Dioxide 17.8 mmol/L (21.0-32.0); Chloride 106 mmol/L (98-108); Creatinine, Serum 1.65 mg/dL (0.70-1.20); EST Glomerular Filtration Rate 33 (>60); Glucose 97 mg/dL (70-99); Potassium 3.6 mmol/L (3.3-5.1); Sodium Level 137 mmol/L (133-145)
--- NOTE | 2025-01-07 07:20 | PCM.PN.GU ---
Subjective Subjective 69-year-old female presented with a kidney stone status post stent placement, stone was infected so was not lasered. Postop the patient did become septic and ran a fever required oxygen she is now in progressive care unit stable blood pressure stable oxygenation is better still has a fever still running a white count at 15,000 continue with broad-spectrum antibiotics ceftriaxone urine cultures pending Objective Data Objective Data Vital Signs: Vital Signs Temp Pulse Resp BP Pulse Ox O2 Del Method O2 Flow Rate 100.0 F H 81 25 H 112/53 L 98 Nasal Cannula 4 01/07/25 06:00 01/07/25 06:00 01/07/25 06:00 01/07/25 06:00 01/07/25 06:00 01/07/25 06:00 01/07/25 06:00 Oxygen Flow Rate (L/min) 4 Oxygen Delivery Method Nasal Cannula Weight: 112.774 kg Body Mass Index (BMI) 38.9 Intake & Output: Intake and Output for Last 24 Hours 01/05/25 01/06/25 01/07/25 23:59 23:59 23:59 Intake Total 5936.73 / 6036.73 1679.17 / 1679.17 Output Total 450 / 515 565 / 565 Balance 5486.73 / 5521.73 1114.17 / 1114.17 Lab / Micro Data 01/07/25 06:15 01/07/25 06:15 Labs: Laboratory Results - last 24 hr 01/06/25 10:57: POC Glucose 103 01/06/25 14:05: Sodium 137, Potassium 3.6, Chloride 104, Carbon Dioxide 17.3 L, Anion Gap 17 H, BUN 27 H, Creatinine 1.57 H, Estim Creat Clear Calc 43.20 L, Est GFR (MDRD) Non-Af 35 L, BUN/Creatinine Ratio 17.3, Glucose 104 H, Calcium 8.1, Total Bilirubin 2.08 H, AST 23, ALT 17, Alkaline Phosphatase 116 H, Troponin T High Sens 85 H*, Total Protein 5.7 L, Albumin 3.7, Globulin 2.1 L, Albumin/Globulin Ratio 1.8 01/06/25 15:55: WBC 3.5 L, RBC 2.96 L, Hgb 9.5 L, Hct 28.6 L, MCV 96.6, MCH 32.1 H, MCHC 33.2, RDW Std Deviation 49.1 H, RDW Coeff of Kodak 14.0, Plt Count 112 L, MPV 9.7, Immature Gran % (Auto) 0.300, Neut % (Auto) 94.2 H, Lymph % (Auto) 4.3 L, Garfield % (Auto) 0.6, Eos % (Auto) 0.3, Baso % (Auto) 0.3, Absolute Neuts (auto) 3.3, Absolute Lymphs (auto) 0.15 L, Nucleated RBC % 0, Platelet Estimate SLT DEC, RBC Morphology NORM C+C, Anisocytosis 1+, Macrocytosis RARE, Ovalocytes 1+, Lactic Acid 2.4 H*, Troponin T Hi Sens 2 Hr 111 H* 01/06/25 16:20: POC Glucose 79 01/06/25 18:03: Troponin T Hi Sens 4Hr 105 H* 01/06/25 20:10: Lactic Acid 1.6 01/06/25 23:43: POC Glucose 79 01/07/25 06:15: WBC 15.6 H, RBC 3.10 L, Hgb 9.9 L, Hct 29.9 L, MCV 96.5, MCH 31.9, MCHC 33.1, RDW Std Deviation 50.0 H, RDW Coeff of Kodak 14.4, Plt Count 115 L, MPV 9.7, Sodium 137, Potassium 3.6, Chloride 106, Carbon Dioxide 17.8 L, Anion Gap 13, BUN 30 H, Creatinine 1.65 H, Estim Creat Clear Calc 41.10 L, Est GFR (MDRD) Non-Af 33 L, BUN/Creatinine Ratio 17.9, Glucose 97, Calcium 7.5 L
[2025-01-07] MEDS: 0.9% Saline Lock 10 ML Syringe IV ×3 (08:28→16:50)
--- NOTE | 2025-01-07 08:33 | EKG12_ITS ---
Test Reason : TIGHTNESS Blood Pressure : */* mmHG Vent. Rate : 90 BPM Atrial Rate : 90 BPM P-R Int : 150 ms QRS Dur : 84 ms QT Int : 420 ms P-R-T Axes : 45 -4 25 degrees QTcB Int : 513 ms Normal sinus rhythm Low voltage QRS Nonspecific ST abnormality -BASELINE ARTIFACT Prolonged QT Abnormal ECG When compared with ECG of 06-Jan-2025 12:47, MANUAL COMPARISON REQUIRED DATA IS UNCONFIRMED Confirmed by Clyde Blank ([id number]), senior editor JAME SANTORO ([id number]) on 01/13/2025 1:20:24 PM Referred By: ELMER Confirmed By: Clyde Blank
[2025-01-07] MEDS: Nitroglycerin (INPATIENT USE) 0.4 MG TAB.SUBL SL (09:41)
[2025-01-07] MEDS: Pantoprazole Sodium 20 MG Tablet PO (09:48)
[2025-01-07] MEDS: predniSONE 1 MG Tablet 3 MG PO (09:48)
[2025-01-07] MEDS: Cholecalciferol (VIT D3) 25 MCG TABLET (1,000 UNITS) 50 MCG PO (09:49)
[2025-01-07] MEDS: Heparin Injection (Vial) 5,000 UNIT/ML VIAL 5000 UNIT SC ×2 (09:49→22:31)
[2025-01-07] MEDS: Hydroxychloroquine 200 MG Tablet 400 MG PO (09:49)
[2025-01-07] MEDS: Ceftriaxone 2 GM in 0.9% Normal Saline (50mL MB+) 50 ML IV (11:27)
--- NOTE | 2025-01-07 11:36 | PCM.PN.HOSP ---
Reason for Visit Reason for Visit: Diagnoses Sepsis, unspecified organism (01/06/25) Hydronephrosis with renal and ureteral calculous obstruction (01/06/25) Unspecified abdominal pain (01/06/25) Subjective Subjective Saw patient at bedside this morning. Patient was mildly fatigued appearing but otherwise sitting up comfortably in bedside chair, conversing normally and in no acute distress. Moderately improved compared to yesterday. She reports only mild lower abdominal/flank pain today. Denies any fevers or chills today. No other new concerns at this time. Objective Data Objective Data Vital Signs: Vital Signs Temp Pulse Resp BP Pulse Ox O2 Del Method O2 Flow Rate 100.4 F H 94 24 H 101/52 L 93 Nasal Cannula 2 01/07/25 09:00 01/07/25 09:41 01/07/25 09:00 01/07/25 09:41 01/07/25 09:34 01/07/25 09:00 01/07/25 09:58 Oxygen Flow Rate (L/min) 2 Oxygen Delivery Method Nasal Cannula Weight: 112.774 kg Body Mass Index (BMI) 38.9 Intake & Output: Intake and Output for Last 24 Hours 01/05/25 01/06/25 01/07/25 23:59 23:59 23:59 Intake Total 5936.73 / 6036.73 2195.84 / 2195.84 Output Total 450 / 515 565 / 565 Balance 5486.73 / 5521.73 1630.84 / 1630.84 Lab / Micro Data 01/07/25 06:15 01/07/25 06:15 Labs: Laboratory Results - last 24 hr 01/06/25 14:05: Sodium 137, Potassium 3.6, Chloride 104, Carbon Dioxide 17.3 L, Anion Gap 17 H, BUN 27 H, Creatinine 1.57 H, Estim Creat Clear Calc 43.20 L, Est GFR (MDRD) Non-Af 35 L, BUN/Creatinine Ratio 17.3, Glucose 104 H, Calcium 8.1, Total Bilirubin 2.08 H, AST 23, ALT 17, Alkaline Phosphatase 116 H, Troponin T High Sens 85 H*, Total Protein 5.7 L, Albumin 3.7, Globulin 2.1 L, Albumin/Globulin Ratio 1.8 01/06/25 15:55: WBC 3.5 L, RBC 2.96 L, Hgb 9.5 L, Hct 28.6 L, MCV 96.6, MCH 32.1 H, MCHC 33.2, RDW Std Deviation 49.1 H, RDW Coeff of Kodak 14.0, Plt Count 112 L, MPV 9.7, Immature Gran % (Auto) 0.300, Neut % (Auto) 94.2 H, Lymph % (Auto) 4.3 L, Lee % (Auto) 0.6, Eos % (Auto) 0.3, Baso % (Auto) 0.3, Absolute Neuts (auto) 3.3, Absolute Lymphs (auto) 0.15 L, Nucleated RBC % 0, Platelet Estimate SLT DEC, RBC Morphology NORM C+C, Anisocytosis 1+, Macrocytosis RARE, Ovalocytes 1+, Lactic Acid 2.4 H*, Troponin T Hi Sens 2 Hr 111 H* 01/06/25 16:20: POC Glucose 79 01/06/25 18:03: Troponin T Hi Sens 4Hr 105 H* 01/06/25 20:10: Lactic Acid 1.6 01/06/25 23:43: POC Glucose 79 01/07/25 06:15: WBC 15.6 H, RBC 3.10 L, Hgb 9.9 L, Hct 29.9 L, MCV 96.5, MCH 31.9, MCHC 33.1, RDW Std Deviation 50.0 H, RDW Coeff of Kodak 14.4, Plt Count 115 L, MPV 9.7, Sodium 137, Potassium 3.6, Chloride 106, Carbon Dioxide 17.8 L, Anion Gap 13, BUN 30 H, Creatinine 1.65 H, Estim Creat Clear Calc 41.10 L, Est GFR (MDRD) Non-Af 33 L, BUN/Creatinine Ratio 17.9, Glucose 97, Calcium 7.5 L Micro: Microbiology 01/05/25 22:35 Urine, Catheterized Urine Culture - 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 General Appearance: cooperative HEENT normocephalic, head/scalp atraumatic, hearing grossly normal bilaterally and nasal mucous membranes and turbinates normal Eyes PERRL, EOMs intact bilaterally and conjunctivae normal Neck full ROM Chest inspection of chest normal Resp normal respiratory effort and no use of accessory muscles Resp Narrative: Breathing comfortably on room air at rest. Good breath sounds bilaterally throughout, no wheezing or crackles noted. Improved. Cardio regular rate, regular rhythm, no murmurs and peripheral pulses 2+ throughout GI normal to inspection, nondistended, normoactive bowel sounds, soft to palpation, non-tender and non-distended Narrative: Mild left-sided flank tenderness noted. Stable. Bladder / Kidney Exam: bladder normal to palpation Back/Spine normal ROM Extremity normal to inspection, full ROM and no pedal edema Skin no rashes or lesions noted Psych mental status grossly normal Assessment & Plan Assessment/Plan (1) Hydronephrosis with renal calculous obstruction: (2) Sepsis: PLAN: Plan Patient is a 69-year-old female who presented [facility] on 01/06/2025 for planned urology procedure. Medicine consulted postoperatively for medical management of suspected urosepsis. 1. Sepsis without shock secondary to acute pyelonephritis in setting of obstructive nephrolithiasis ? Urology primary. CT abdomen pelvis on 01/05 with 1.2 cm obstructing stone in left proximal ureter with mild hydroureteronephrosis. S/p cystoscopy with ureteral stent placement on 01/06; stone not lasered or removed due to infected appearing urine. Postoperatively developed sepsis with tachycardia, fever, MICHAEL, elevated total bilirubin and altered mentation. Treated with 30 cc/kg of IV fluids and IV ceftriaxone; had blood pressure drop and was borderline for some time but did not require any pressors. BP improving. Continue ceftriaxone, follow-up urine culture. 2. MICHAEL ? Creatinine 1.57 postoperatively, baseline around 1.1. Presume secondary to sepsis. Stable, most recent creatinine 1.65 on 01/07. Monitor BMP and urine output daily. De La Torre catheter in place for accurate I's and O's. 3. Elevated troponin level ? Troponin trend 85 > 111 > 105. Mild ST depressions noted in lateral leads on EKG. Patient did report mild chest pain yesterday, 4/10 at worst. Suspect some component of demand ischemia but cannot rule out coronary disease. Echo ordered. Can consider stress testing if needed. 4. Postoperative hypoxia, resolved ? Patient required up to 6 L nasal cannula postoperatively to maintain appropriate saturations. Was placed on nonrebreather as she is a mouth breather with saturations in the mid to high 90s. Suspect hypoxia was primarily due to poor respiratory drive in setting of recent anesthesia. Weaned off supplemental oxygen on 01/07. Chronic medical conditions: ? Class II obesity with DEBBIE: BMI 38 on admit. Complicates hospital course, care and prognosis. Continue CPAP at night. ? Nonobstructive CAD, hypertension, hyperlipidemia: Continue home aspirin and statin. Holding home BP meds in setting of sepsis. ? Type 2 diabetes mellitus: Holding home oral medications. Treating with sliding scale insulin with meals while inpatient, adjust as needed. ? RA: Continue home meds. ? GERD: Continue home PPI. DVT prophylaxis: Heparin subcu CODE STATUS: Full code, verified Total clinical time spent by myself addressing the patient's medical issues, reviewing all the data, and collaborating with patient's care team: 35 minutes. Charges/Coding Visit Charges Inpatient E&M: 00133 Subs Hosp L2
[2025-01-07 12:07] LABS: Bedside Glucose 70 mg/dL (74-106)
[2025-01-07] MEDS: Acetaminophen 325 MG Tablet 650 MG PO ×2 (12:19→22:34)
--- NOTE | 2025-01-07 12:47 | CASEMGMT ---
MANJINDER SEE Assessment Face to Face with patient for initial transition planning/care coordination assessment. MANJINDER SEE introduced self and role at [facility], pt voices understanding. Pt is A&Ox4 and is resting comfortably in the chair and is calm. Care providers, pharmacy, and demographics verified. Admitting dx: Obstructing Kidney Stone LACE Strata: 1 PCP: Malick Mccoy Specialists: Daniel (Rheumatology), Harris ([facility] [place]), Yash (Urology) Preferred Pharmacy: [facility] Insurance: [employer] [facility] Prescription Benefit: Yes LNOK: Chip (H) Living Arrangements: Pt lives with her in a 2 story home with a FFSU and 2 steps to enter ADLs/IADLs: Independent. PT is not recommending any additional therapy Transportation: Self, DME: CPAP @ HS through [employer] with no additional oxygen. If pt were to qualify for home oxygen, declines list and prefers [employer]. Pt reports that she has a BGM with sufficient supplies. 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 HHC/SNF: Reports HHC x3 years ago out of [place]. Denies SNF history Pt?s goal: Home Plan: Home with 's support, anticipate no additional needs e/f new oxygen set up. Pt states that she feels safe returning home with her at the time of DC and denies further questions, concerns, or needs at this time. Rosalba Bower RN, CM
--- NOTE | 2025-01-07 12:48 | ECHOCS_ITS ---
Reason For Study Reason For Study: CHEST PAIN Procedure This was a 2D Doppler, Color Flow transthoracic echocardiogram. The study was technically difficult. Contrast injection was performed. Exam performed portable in patient room. Left Ventricle Normal left ventricle. The estimated ejection fraction is 50-55 %. Right Ventricle Normal right ventricle. Atria Normal left atrium. Normal right atrium. Mitral Valve The mitral valve is structurally normal. No prolapse or stenosis seen. Tricuspid Valve Normal tricuspid valve. Aortic Valve Trisinus/trileaflet aortic valve. Pulmonic Valve The pulmonic valve is not well visualized. Pericardium/Pleural No pericardial effusion. Medication Diluted definity 1.5ml given slow IV push to enhance endocardial definition. MMode/2D Measurements & Calculations LVIDd: 5.2 cm IVSd: 1.0 cm LVOT diam: 2.1 cm LVIDs: 3.0 cm LVPWd: 1.1 cm LVOT area: 3.3 cm2 RVDd: 3.6 cm FS: 41.9 % asc Aorta Diam: 3.5 cm LAV(MOD-bp): 47.6 ml LVAd ap4: 33.7 cm2 LAV(MOD-bp) Indexed: 21.5 ml/m2 LVLd ap4: 8.6 cm LAV(MOD-sp2): 36.5 ml EDV(MOD-sp4): 110.0 ml LAV(MOD-sp4): 57.4 ml EDV(sp4-el): 111.3 ml LVAs ap4: 21.9 cm2 LVLs ap4: 7.8 cm ESV(MOD-sp4): 52.4 ml ESV(sp4-el): 52.4 ml EF(MOD-sp4): 52.4 % EF(sp4-el): 53.0 % LVAd ap2: 35.7 cm2 SV(MOD-sp4): 57.6 ml SV(MOD-sp2): 61.7 ml LVLd ap2: 9.2 cm SI(MOD-sp4): 26.1 ml/m2 SI(MOD-sp2): 27.9 ml/m2 EDV(MOD-sp2): 114.8 ml EDV(sp2-el): 118.0 ml LVAs ap2: 22.4 cm2 LVLs ap2: 8.0 cm ESV(MOD-sp2): 53.0 ml ESV(sp2-el): 53.1 ml EF(MOD-sp2): 53.8 % SV(sp4-el): 59.0 ml Ao sinus diam: 3.[address] Junction: 2.8 cm LA dimension(2D): 4.4 cm LA A4 area: 21.4 cm2 RA A4 area: 15.6 cm2 TAPSE: 2.0 cm Time Measurements MV dec time: 0.25 sec Doppler Measurements & Calculations MV E max christ: 101.1 cm/sec Lat Peak E' Christ: 12.7 cm/sec Med Peak E' Christ: 8.4 cm/sec MV A max christ: 108.4 cm/sec E/E' lat: 8.0 E/E' med: 12.1 MV E/A: 0.93 MV dec slope: 398.8 cm/sec2 Ao V2 max: 190.5 cm/sec LV V1 max: 151.9 cm/sec Ao max P.5 mmHg LV V1 max P.2 mmHg Ao V2 mean: 129.2 cm/sec LV V1 mean P.1 mmHg Ao mean P.7 mmHg LV V1 mean: 119.6 cm/sec Ao V2 VTI: 38.7 cm LV V1 VTI: 30.0 cm AV (velocity ratio): 0.78 ADAMS(I,D): 2.6 cm2 ADAMS(V,D): 2.6 cm2 SV(LVOT): 99.7 ml PA V2 max: 77.9 cm/sec ECHO/Echo Complete W/ Contrast Interpretation Summary The estimated ejection fraction is 50-55 %. Overall normal LV systolic function No significant valvular abnormality No significant change from prior echocardiogram 2015 Ordering Physician: Galo Logan Performed By: Beverley Alfonso RDCS
[2025-01-07] MEDS: Ketorolac 15 MG/ML Vial IV (16:49)
[2025-01-07] MEDS: Atorvastatin Calcium 20 MG Tablet PO (22:31)
[2025-01-07] MEDS: Aspirin 81 MG TAB.CHEW PO (22:31)
[2025-01-07 23:43] LABS: Bedside Glucose 85 mg/dL (74-106)
[2025-01-08] VITALS (8 sets, daily range): BP systolic 97–119; BP diastolic 51–80; PULSE 79–86; RESP 16–22; TEMP 37–37.4; O2SAT 89–96
[2025-01-08 06:47] LABS: Bedside Glucose 69 mg/dL (74-106)
[2025-01-08 06:57] LABS: Hematocrit 27.7 % (37-47); Hemoglobin 9.2 g/dL (12.0-15.0); Mean Corp Hgb Conc 33.2 g/dL (32-36); Mean Corpuscular Hgb 31.6 pg (27.0-32.0); Mean Corpuscular Volume 95.2 fL (81-99); Mean Platelet Vol. 9.8 fl (6.2-12.0); Platelet Count 115 K/mm3 (150-450); RBC Distribution Width CV 13.8 % (11.6-14.6); RBC Distribution Width SD 48.5 fl (35.1-43.9); Red Blood Count 2.91 M/mm3 (4.2-5.4); White Blood Count 15.1 K/mm3 (4.4-11.0)
--- NOTE | 2025-01-08 07:27 | PCM.PN.GU ---
Subjective Subjective Status post stent placement for an infected stone, stone was not lasered because it looked infected at the time of stent placement patient did have bacteremia and sepsis afterwards probably from the manipulation of the stone. She is currently on broad-spectrum antibiotics cultures are growing gram-negative rods very likely E. coli we will see what the sensitivities come out. Patient is doing much better she is off oxygen she is fairly puffy and swollen IV fluids have been hep-locked which is good I think we can DC the De La Torer catheter continue with gentle diuresis. She might be able to go home tomorrow. She is off oxygen. Objective Data Objective Data Vital Signs: Vital Signs Temp Pulse Resp BP Pulse Ox O2 Del Method O2 Flow Rate 99.3 F H 79 18 97/51 L 92 Room Air 2 01/08/25 02:00 01/08/25 02:00 01/08/25 02:00 01/08/25 02:00 01/08/25 02:00 01/08/25 04:03 01/07/25 11:00 Oxygen Flow Rate (L/min) 2 Oxygen Delivery Method Room Air Weight: 112.774 kg Body Mass Index (BMI) 38.9 Intake & Output: Intake and Output for Last 24 Hours 01/06/25 01/07/25 01/08/25 23:59 23:59 23:59 Intake Total 5936.73 / 6036.73 2245.84 / 2465.84 220 / 220 Output Total 450 / 515 1665 / 2265 600 / 600 Balance 5486.73 / 5521.73 580.84 / 200.84 -380 / -380 Lab / Micro Data 01/08/25 06:45 01/07/25 06:15 Labs: Laboratory Results - last 24 hr 01/07/25 11:48: POC Glucose 70 L 01/07/25 23:25: POC Glucose 85 01/08/25 06:24: POC Glucose 69 L 01/08/25 06:45: WBC 15.1 H, RBC 2.91 L, Hgb 9.2 L, Hct 27.7 L, MCV 95.2, MCH 31.6, MCHC 33.2, RDW Std Deviation 48.5 H, RDW Coeff of Kodak 13.8, Plt Count 115 L, MPV 9.8 Micro: Microbiology 01/05/25 22:35 Urine, Catheterized Urine Culture - Preliminary GNR lactose 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 Overall normal LV systolic function No significant valvular abnormality No significant change from prior echocardiogram 2015 Ordering Physician: Galo Logan Performed By: Beverley Alfonso RDCS
[2025-01-08 07:41] LABS: Anion Gap 11 (5-15); BUN 26 mg/dL (4-19); Carbon Dioxide 19.6 mmol/L (21.0-32.0); Chloride 106 mmol/L (98-108); Creatinine, Serum 1.24 mg/dL (0.70-1.20); EST Glomerular Filtration Rate 47 (>60); Estimated Creatinine Clearance 54.69 ml/min (50-250); Glucose 70 mg/dL (70-99); Potassium 3.1 mmol/L (3.3-5.1); Sodium Level 136 mmol/L (133-145)
[2025-01-08] MEDS: Pantoprazole Sodium 20 MG Tablet PO (08:44)
[2025-01-08] MEDS: Potassium Chloride Oral Tablet 20 MEQ 40 MEQ PO (08:44)
[2025-01-08] MEDS: Cholecalciferol (VIT D3) 25 MCG TABLET (1,000 UNITS) 50 MCG PO (08:44)
[2025-01-08] MEDS: Methotrexate 2.5 MG Tablet 25 MG PO (08:44)
[2025-01-08] MEDS: Furosemide 20 MG/2 ML VIAL IV (08:44)
[2025-01-08] MEDS: predniSONE 1 MG Tablet 3 MG PO (08:44)
[2025-01-08] MEDS: Hydroxychloroquine 200 MG Tablet 400 MG PO (08:45)
[2025-01-08] MEDS: Acetaminophen 325 MG Tablet 650 MG PO ×2 (08:53→16:08)
[2025-01-08] MEDS: 0.9% Saline Lock 10 ML Syringe IV ×2 (08:56→10:04)
[2025-01-08] MEDS: Heparin Injection (Vial) 5,000 UNIT/ML VIAL 5000 UNIT SC ×2 (10:04→21:13)
[2025-01-08] MEDS: Ceftriaxone 2 GM in 0.9% Normal Saline (50mL MB+) 50 ML IV (10:07)
--- NOTE | 2025-01-08 11:24 | PCM.PN.HOSP ---
Reason for Visit Reason for Visit: Diagnoses Sepsis, unspecified organism (01/06/25) Hydronephrosis with renal and ureteral calculous obstruction (01/06/25) Unspecified abdominal pain (01/06/25) Subjective Subjective Saw patient at bedside this morning, family present. Patient continues to appear improved today compared to previous days. More alert today and sitting up comfortably in bedside chair, conversing normally, in no acute distress. Denies any low abdominal or flank pain today. Denies any fevers or chills. Denies any pain or discomfort with urination. Does report some swelling in her hands and lower legs presumably secondary to heavy IV fluid resuscitation on admit. She was given dose of IV Lasix this morning with good urine output. No other new concerns today. Objective Data Objective Data Vital Signs: Vital Signs Temp Pulse Resp BP Pulse Ox O2 Del Method O2 Flow Rate 99.0 F 82 22 H 109/61 93 Room Air 2 01/08/25 08:41 01/08/25 08:41 01/08/25 08:41 01/08/25 08:41 01/08/25 08:41 01/08/25 08:41 01/07/25 11:00 Oxygen Flow Rate (L/min) 2 Oxygen Delivery Method Room Air Weight: 112.774 kg Body Mass Index (BMI) 38.9 Intake & Output: Intake and Output for Last 24 Hours 01/06/25 01/07/25 01/08/25 23:59 23:59 23:59 Intake Total 5936.73 / 6036.73 2245.84 / 2465.84 220 / 220 Output Total 450 / 515 1665 / 2265 600 / 600 Balance 5486.73 / 5521.73 580.84 / 200.84 -380 / -380 Lab / Micro Data 01/08/25 06:45 01/08/25 06:45 Labs: Laboratory Results - last 24 hr 01/07/25 11:48: POC Glucose 70 L 01/07/25 23:25: POC Glucose 85 01/08/25 06:24: POC Glucose 69 L 01/08/25 06:45: WBC 15.1 H, RBC 2.91 L, Hgb 9.2 L, Hct 27.7 L, MCV 95.2, MCH 31.6, MCHC 33.2, RDW Std Deviation 48.5 H, RDW Coeff of Kodak 13.8, Plt Count 115 L, MPV 9.8, Sodium 136, Potassium 3.1 L, Chloride 106, Carbon Dioxide 19.6 L, Anion Gap 11, BUN 26 H, Creatinine 1.24 H, Estim Creat Clear Calc 54.69, Est GFR (MDRD) Non-Af 47 L, BUN/Creatinine Ratio 21.0 H, Glucose 70, Calcium 8.0 Micro: Microbiology 01/05/25 22:35 Urine, Catheterized Urine Culture - Preliminary Escherichia coli Gram negative jeremie 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 Overall normal LV systolic function No significant valvular abnormality No significant change from prior echocardiogram 2015 Ordering Physician: Galo Logan Performed By: Beverley Alfonso RDCS Physical Exam Const alert and oriented x3 Constitutional Narrative: Elderly female, class II obesity, energy much improved today, sitting up comfortably in bedside chair, answering questions appropriately and in no acute distress. General Appearance: cooperative HEENT normocephalic, head/scalp atraumatic, hearing grossly normal bilaterally and nasal mucous membranes and turbinates normal Eyes PERRL, EOMs intact bilaterally and conjunctivae normal Neck full ROM Chest inspection of chest normal Resp normal respiratory effort and no use of accessory muscles Resp Narrative: Breathing comfortably on room air at rest. Good breath sounds bilaterally throughout, no wheezing or crackles noted. Improved. Cardio regular rate, regular rhythm, no murmurs and peripheral pulses 2+ throughout GI normal to inspection, nondistended, normoactive bowel sounds, soft to palpation, non-tender and non-distended Bladder / Kidney Exam: bladder normal to palpation and no CVA tenderness Back/Spine normal ROM Extremity normal to inspection, full ROM and no pedal edema Skin no rashes or lesions noted Psych mental status grossly normal Assessment & Plan Assessment/Plan (1) Hydronephrosis with renal calculous obstruction: (2) Sepsis: PLAN: Plan Patient is a 69-year-old female who presented [facility] on 01/06/2025 for planned urology procedure. Medicine consulted postoperatively for medical management of suspected urosepsis. 1. Sepsis without shock secondary to acute pyelonephritis in setting of obstructive nephrolithiasis ? Urology primary. CT abdomen pelvis on 01/05 with 1.2 cm obstructing stone in left proximal ureter with mild hydroureteronephrosis. S/p cystoscopy with ureteral stent placement on 01/06; stone not lasered or removed due to infected appearing urine. Postoperatively developed sepsis with tachycardia, fever, MICHAEL, elevated total bilirubin and altered mentation. Treated with 30 cc/kg of IV fluids and IV ceftriaxone; had blood pressure drop and was borderline for some time but did not require any pressors. BP improving. Urine culture prelim positive for 80-100 K pansensitive E. coli. Will continue IV ceftriaxone while inpatient and plan for 7 to 10-day course of antibiotics total on discharge. 2. MICHAEL, improving ? Creatinine 1.57 postoperatively, baseline around 1.1. Presume secondary to sepsis. Improving, most recent creatinine 1.27 on 01/08. Patient reporting fluid overload in hands and lower legs presumably due to heavy IV fluid resuscitation on admit. Per urology, okay for gentle diuresis as needed. Continue to monitor BMP and urine output daily. 3. Elevated troponin level ? Troponin trend 85 > 111 > 105. Mild [address] depressions noted in lateral leads on EKG. Patient did report mild chest pain on 01/07, 4/10 at worst. Echo on 01/07 showed EF 50 to 55%, no other abnormalities noted. Suspect primarily due to demand ischemia. Will hold on further workup while inpatient but can consider stress testing in the outpatient setting if needed. 4. Postoperative hypoxia, resolved ? Patient required up to 6 L nasal cannula postoperatively to maintain appropriate saturations. Was placed on nonrebreather as she is a mouth breather with saturations in the mid to high 90s. Suspect hypoxia was primarily due to poor respiratory drive in setting of recent anesthesia. Weaned off supplemental oxygen on 01/07. Chronic medical conditions: ? Class II obesity with DEBBIE: BMI 38 on admit. Complicates hospital course, care and prognosis. Continue CPAP at night. ? Nonobstructive CAD, hypertension, hyperlipidemia: Continue home aspirin and statin. Holding home BP meds in setting of sepsis. ? Type 2 diabetes mellitus: Holding home oral medications. Treating with sliding scale insulin with meals while inpatient, adjust as needed. ? RA: Continue home meds. ? GERD: Continue home PPI. DVT prophylaxis: Heparin subcu CODE STATUS: Full code, verified Total clinical time spent by myself addressing the patient's medical issues, reviewing all the data, and collaborating with patient's care team: 35 minutes. Charges/Coding Visit Charges Inpatient E&M: 11347 Subs Hosp L2
[2025-01-08 11:44] LABS: Bedside Glucose 114 mg/dL (74-106)
[2025-01-08 15:13] LABS: Bedside Glucose 50 mg/dL (74-106)
[2025-01-08 15:13] LABS: Bedside Glucose 40 mg/dL (74-106)
[2025-01-08 16:28] LABS: Bedside Glucose 96 mg/dL (74-106)
[2025-01-08] MEDS: leucovorin 5 MG Tablet PO (20:52)
[2025-01-08] MEDS: Aspirin 81 MG TAB.CHEW PO (21:12)
[2025-01-08] MEDS: Atorvastatin Calcium 20 MG Tablet PO (21:12)
[2025-01-08 21:36] LABS: Bedside Glucose 119 mg/dL (74-106)
[2025-01-09 02:00] VITALS: BP 127/55; PULSE 79; RESP 16; TEMP 37.1; O2SAT 94
[2025-01-09 03:00] VITALS: BP 127/55; PULSE 79; RESP 16; TEMP 37.1; O2SAT 94
[2025-01-09] MEDS: 0.9% Saline Lock 10 ML Syringe IV ×2 (05:17→07:58)
[2025-01-09 05:23] LABS: Hematocrit 27.4 % (37-47); Hemoglobin 9.2 g/dL (12.0-15.0); Mean Corp Hgb Conc 33.6 g/dL (32-36); Mean Corpuscular Hgb 31.7 pg (27.0-32.0); Mean Corpuscular Volume 94.5 fL (81-99); Platelet Count 143 K/mm3 (150-450); RBC Distribution Width CV 13.8 % (11.6-14.6)
[2025-01-09 06:12] LABS: Anion Gap 12 (5-15); BUN 20 mg/dL (4-19); BUN/Creat Ratio 19.3 RATIO (10-20); Calcium,Total 8.5 mg/dL (7.6-11.0); Carbon Dioxide 20.9 mmol/L (21.0-32.0); Chloride 106 mmol/L (98-108); Creatinine, Serum 1.02 mg/dL (0.70-1.20); EST Glomerular Filtration Rate 59 (>60); Estimated Creatinine Clearance 66.49 ml/min (50-250); Glucose 119 mg/dL (70-99); Potassium 3.5 mmol/L (3.3-5.1); Sodium Level 138 mmol/L (133-145)
[2025-01-09 06:51] LABS: Bedside Glucose 126 mg/dL (74-106)
--- NOTE | 2025-01-09 07:10 | DS.PCM_ITS ---
Providers Date of Admission: 01/06/25 Date of Discharge: 01/09/25 Primary Care Physician: Dr. Malick Mccoy MD Reason For Visit: OBSTRUCTING KIDNEY STONE Diagnosis Discharge Diagnosis (1) Hydronephrosis with renal calculous obstruction: Status: Acute Code(s): N13.2 - Hydronephrosis with renal and ureteral calculous obstruction Plan: Plan to take to surgery today for cystoscopy left ureteroscopy laser lithotripsy of stone and stent placement (2) Sepsis: Status: Acute Code(s): A41.9 - Sepsis, unspecified organism Plan: Pansensitive E. coli treated with ceftriaxone changed to Cipro on discharge (3) Left flank pain: Status: Acute Code(s): R10.9 - Unspecified abdominal pain Medications at Discharge Home Medications aspirin 81 mg tablet,delayed release (Adult Low Dose Aspirin) 81 mg PO QHS 08/21/15 hydrochlorothiazide 12.5 mg capsule 12.5 mg PO DAILY 08/21/15 metformin 500 mg tablet 1,000 mg PO BIDCM dm 08/21/15 omega-3 fatty acids-fish oil 340 mg-1,000 mg capsule (Fish Oil) 1 ea PO DAILY 08/21/15 simvastatin 40 mg tablet 40 mg PO QHS 08/21/15 biotin 1 mg capsule 1 mg PO DAILY pain 01/05/25 cholecalciferol (vitamin D3) 50 mcg (2,000 unit) tablet (Vitamin D3) 2,000 unit PO DAILY supplement 01/05/25 glimepiride 1 mg tablet 0.5 mg PO DAILY dm 01/05/25 hydroxychloroquine 200 mg tablet 400 mg PO DAILY oa 01/05/25 leucovorin calcium 5 mg tablet 5 mg PO QWEEK 01/05/25 losartan 50 mg tablet 50 mg PO DAILY bp 01/05/25 Held on 01/09/25. Instructions: Resume on 01/13/25. methotrexate sodium 2.5 mg tablet 25 mg PO QWEEK 01/05/25 metoprolol succinate 50 mg tablet,extended release 24 hr 50 mg PO DAILY heart 01/05/25 omeprazole 20 mg capsule,delayed release 20 mg PO DAILY gerd 01/05/25 potassium chloride 10 mEq tablet,extended release 10 meq PO DAILY supplment 01/05/25 prednisone 1 mg tablet 3 mg PO DAILY oa 01/05/25 acetaminophen 500 mg capsule 500 mg PO Q4H PRN pain #20 caps 01/06/25 ciprofloxacin HCl 500 mg tablet (Cipro) 500 mg PO BID #14 tabs 01/06/25 ibuprofen 600 mg tablet 600 mg PO Q6H PRN pain #20 tabs 01/06/25 phenazopyridine 100 mg tablet (Pyridium) 100 mg PO TID PRN burning #14 tabs 01/06/25 Hospital Course Operations - (Cystoscopy and left stent placement) Procedures None Summary of Care Provided Minutes Spent on Discharge: 35 Hospital Course: 69-year-old female presented to the hospital with severe intractable left flank pain she had a CAT scan that demonstrated a stone obstructing the left kidney she underwent cystoscopy and ureteroscopy, the thought was that her lasered the stone but upon entering the area stone looked infected so we did not lasered the stone just placed a stent. Afterwards she did became septic ran a fever high white blood count was treated with broad-spectrum antibiotics. Hospital consultation was obtained. She had low saturations on oxygen. Her sepsis resolved her oxygenation improved. She had pansensitive E. coli. She is now doing clinically stable and will go home with Satish to treat her infection. My office will call her to get her set up for shockwave lithotripsy next week to treat the stone. She will go home today with family Physical Exam Const alert and oriented x3 General Appearance: cooperative HEENT normocephalic and head/scalp atraumatic Eyes PERRL and EOMs intact bilaterally Neck supple, no JVD and no carotid bruits Resp normal respiratory effort, normal air movement and clear to auscultation bilaterally Cardio regular rate and no murmurs GI normal to inspection, nondistended, normoactive bowel sounds and soft to palpation Extremity normal capillary refill General Extremity: no tenderness to palpation of joints or extremities; Negative for edema Skin no rashes or lesions noted and no wounds General Skin Exam: no breakdown Neuro CN's II-XII intact bilaterally Psych affect normal Appearance: appropriate Weight / BMI Weight Weight: 112.774 kg Body Mass Index (BMI) 38.9 ABG / Lab / Microbiology Data 01/09/25 05:15 01/09/25 05:15 Laboratory: Laboratory Results - last 24 hr 01/07/25 22:45: POC Glucose 40 L* 01/07/25 22:47: POC Glucose 50 L 01/08/25 06:45: Sodium 136, Potassium 3.1 L, Chloride 106, Carbon Dioxide 19.6 L , Anion Gap 11, BUN 26 H, Creatinine 1.24 H, Estim Creat Clear Calc 54.69, Est GFR (MDRD) Non-Af 47 L, BUN/Creatinine Ratio 21.0 H, Glucose 70, Calcium 8.0 01/08/25 11:27: POC Glucose 114 H 01/08/25 16:06: POC Glucose 96 01/08/25 21:11: POC Glucose 119 H 01/09/25 05:15: WBC 13.0 H, RBC 2.90 L, Hgb 9.2 L, Hct 27.4 L, MCV 94.5, MCH 31.7, MCHC 33.6, RDW Std Deviation 47.0 H, RDW Coeff of [employer] 13.8, Plt Count 143 L, MPV 10.0, Sodium 138, Potassium 3.5, Chloride 106, Carbon Dioxide 20.9 L, Anion Gap 12, BUN 20 H, Creatinine 1.02, Estim Creat Clear Calc 66.49, Est GFR (MDRD) Non-Af 59 L, BUN/Creatinine Ratio 19.3, Glucose 119 H, Calcium 8.5 01/09/25 06:28: POC Glucose 126 H Microbiology: Microbiology 01/05/25 22:35 Urine, Catheterized Urine Culture - Preliminary Escherichia coli Gram negative jeremie D/C Instructions Discharge Diet: No restrictions Call your doctor if you observe: Fever of 101 or Higher DC O2, CPAP, BIPAP Needs Home O2 Discharge instructions: No Please Follow Up With: Adithya Berrios MD When: Call [phone] for an appointment Meaningful Use Info Meaningful Use Meaningful Use Diagnoses (Choose all that apply): None applicable Ischemic Stroke Statin Dosing Therapy Reference: STATIN DOSE THERAPY REFERENCE: * Patients > 75 years receive moderate or high dose statin therapy. * Patients 75 years or YOUNGER should receive HIGH intensity statin dose unless contraindicated. You will be required to document reason for non-treatment if statin daily dose does not meet guidelines. HIGH DOSE STATIN THERAPY DAILY Atorvastatin > than or = to 40 mg Rosuvastatin > than or = to 20 mg Amlodipine + Atorvastatin > than or = to 2.5/40 mg Ezetimibe + Simvastatin 10/80 mg Simvastatin 80mg Discharge Plan Admission Admit Date/Time: 01/06/25 00:26 Primary Reason for Your Visit: laser stone and stent Attending Provider: Adithya Berrios Primary Care Provider: Malick Mccoy Consulting Providers: Galo Logan Discharge Orders/Prescriptions Prescriptions: New ibuprofen 600 mg tablet 600 mg PO Q6H PRN (Reason: pain) Qty: 20 0RF acetaminophen 500 mg capsule 500 mg PO Q4H PRN (Reason: pain) Qty: 20 0RF phenazopyridine [Pyridium] 100 mg tablet 100 mg PO TID PRN (Reason: burning) Qty: 14 0RF ciprofloxacin HCl [Cipro] 500 mg tablet 500 mg PO BID Qty: 14 0RF Continued metformin 500 MG tablet 1,000 mg PO BIDCM Patient Comments: lowers blood sugar aspirin [Adult Low Dose Aspirin] 81 MG tablet,delayed release (DR/EC) 81 mg PO QHS Patient Comments: blood thinner simvastatin 40 MG tablet 40 mg PO QHS Patient Comments: lowers cholesterol hydrochlorothiazide 12.5 MG capsule 12.5 mg PO DAILY Patient Comments: blood pressure Fish Oil 1 EACH capsule 1 ea PO DAILY Patient Comments: supplement glimepiride 1 mg tablet 0.5 mg PO DAILY methotrexate sodium 2.5 mg tablet 25 mg PO QWEEK Patient Comments: taking every Mon for imflammatory arthritis hydroxychloroquine 200 mg tablet 400 mg PO DAILY potassium chloride 10 mEq tablet extended release 10 meq PO DAILY prednisone 1 mg tablet 3 mg PO DAILY omeprazole 20 mg capsule,delayed release(DR/EC) 20 mg PO DAILY metoprolol succinate 50 mg tablet extended release 24 hr 50 mg PO DAILY leucovorin calcium 5 mg tablet 5 mg PO QWEEK Patient Comments: Take on wednesdays cholecalciferol (vitamin D3) [Vitamin D3] 50 mcg (2,000 unit) tablet 2,000 unit PO DAILY biotin 1 mg capsule 1 mg PO DAILY Held losartan 50 mg tablet 50 mg PO DAILY Hold Instructions: Resume on 01/13/25. Referrals / Follow Up: Adithya Berrios MD [Med Staff - Active Staff] - Malick Mccoy MD [Primary Care Provider] - Disposition Disposition (needs filled in before D/C Order can be placed): Home, Self Care
[2025-01-09 07:46] VITALS: BP 129/65; PULSE 74; RESP 20; TEMP 36.7; O2SAT 96
[2025-01-09] MEDS: Pantoprazole Sodium 20 MG Tablet PO (07:57)
[2025-01-09] MEDS: Acetaminophen 325 MG Tablet 650 MG PO (07:57)
[2025-01-09] MEDS: Cholecalciferol (VIT D3) 25 MCG TABLET (1,000 UNITS) 50 MCG PO (07:58)
[2025-01-09] MEDS: predniSONE 1 MG Tablet 3 MG PO (07:58)
[2025-01-09] MEDS: Hydroxychloroquine 200 MG Tablet 400 MG PO (07:58)
[2025-01-09] MEDS: Ceftriaxone 2 GM in 0.9% Normal Saline (50mL MB+) 50 ML IV (08:07)
[2025-01-09] MEDS: Furosemide 20 MG/2 ML VIAL IV (08:52)
--- NOTE | 2025-01-09 09:32 | CASEMGMT ---
Pt has an order for DC placed. Pt is adequately saturating on room air. MANJINDER CM to pt room at this time. Pt still states that she feels safe discharging home today without any additional needs. Pt states that she has a ride home today and denies any further DC needs or concerns.
== END 2025-01-09 10:41 | disposition home or self-care (01) | DRG 659 ==
LOC: ED 22:56 → MS3 01-06 00:29 → PCU 01-06 13:08
PROVIDERS: Anesthesiology; Hospitalist; Admitting Provider Urology; Emergency Provider Emergency Medicine; PCP Family Medicine; Visit Provider Urology
PROC: 0TJ98ZZ Inspection of Ureter, Via Natural or Artificial Opening Endoscopic (ICD-10-PCS; CPT 52352; principal; 2025-01-06 11:00)
DX: N13.2 Hydronephrosis with renal and ureteral calculous obstruction (principal); A41.9 Sepsis, unspecified organism; I24.89 Other forms of acute ischemic heart disease; T81.44XA Sepsis following a procedure, initial encounter; E11.9 Type 2 diabetes mellitus without complications; N17.9 Acute kidney failure, unspecified; B96.20 Unspecified Escherichia coli [E. coli] as the cause of diseases classified elsewhere; M06.9 Rheumatoid arthritis, unspecified; I10 Essential (primary) hypertension; E66.812 Obesity, class 2; E78.5 Hyperlipidemia, unspecified; G47.33 Obstructive sleep apnea (adult) (pediatric); K21.9 Gastro-esophageal reflux disease without esophagitis; N10 Acute pyelonephritis; Z79.84 Long term (current) use of oral hypoglycemic drugs; Z87.891 Personal history of nicotine dependence; Z68.38 Body mass index [BMI] 38.0-38.9, adult; Z87.442 Personal history of urinary calculi; R09.02 Hypoxemia
CPT/HCPCS: 36415; 36569; 74176; 76000; 80048; 80053; 81001; 82962; 83036; 83605; 84484; 85025; 85027; 87077; 87086; 87088; 87186; 93005; 93306; 94762; 97116; 97162; 97166; 97535; 97802; 99283; Q9957; A4216; C1769; C2617; C8929; J0696; J1938; J2405; J8610

== ENCOUNTER 2025-01-12 23:12 | Emergency (ER) | payer MEDICARE, SELFPAY ==
[2025-01-12 23:13] VITALS: BP 159/101; PULSE 81; RESP 24; TEMP 36.6; O2SAT 97; BMI 41.9
[2025-01-13] MEDS: 0.9% Normal Saline (1000mL) 1,000 ML 999 ML IV (00:07)
[2025-01-13] MEDS: Ketorolac 15 MG/ML Vial IV (00:07)
[2025-01-13 00:12] VITALS: BP 129/65; PULSE 71; RESP 20; O2SAT 97
[2025-01-13 00:13] LABS: Mucous, Urine 0 SEEN /hpf (<or=2+)
[2025-01-13 00:15] LABS: Color, Urine Yellow (Yellow); Glucose, Dipstick Normal (Normal); Ketone-Dipstick Negative (Negative); Leukocyte Esterase-Dipstick 100 /ul (Negative); Nitrite-Dipstick Negative (Negative); Occult Blood-Urine 250 /ul (Negative); Protein-Dipstick 100 mg/dl (Negative); Specific Gravity, Urine 1.015 (1.002-1.030); Urine Clarity Cloudy (Clear); Urine Urobilinogen Normal (Normal)
[2025-01-13 00:30] LABS: Absolute Lymphocyte Count 1.37 X10^3/uL (0.83-4.51); Absolute Neutrophil Count 3.4 X10^3/uL (2.0-7.7); Basophil# 0.08 X10^3/uL; Basophil% 1.3 % (0-1); Eosinophils% 3.3 % (0-5); Hematocrit 32.7 % (37-47); Lymphocyte # 1.37 X10^3/ul (0.83-4.51); Lymphocyte % 22.4 % (19-41); Mean Corp Hgb Conc 33.6 g/dL (32-36); Mean Corpuscular Hgb 31.3 pg (27.0-32.0); Mean Corpuscular Volume 92.9 fL (81-99); Mean Platelet Vol. 9.9 fl (6.2-12.0); Monocyte# 0.79 X10^3/uL; Monocyte% 12.9 % (0-10); NRBC Flagged by Analyzer 0 % (0-5); Neutrophil # 3.41 X10^3/uL (2.7-7.7); Neutrophil % 55.8 % (47-70); Platelet Count 220 K/mm3 (150-450); RBC Distribution Width CV 13.6 % (11.6-14.6); RBC Distribution Width SD 45.2 fl (35.1-43.9); Red Blood Count 3.52 M/mm3 (4.2-5.4); White Blood Count 6.1 K/mm3 (4.4-11.0)
[2025-01-13 00:30] LABS: Urine Bilirubin Dipstick 1 mg/dL (Negative)
[2025-01-13] MEDS: Ondansetron 4 MG/2 ML Vial IV (00:43)
[2025-01-13] MEDS: Morphine 4 MG/ML Syringe IV (00:43)
[2025-01-13 00:45] LABS: Bacteria 2+ /hpf (None Seen); Red Blood Cells-Urine > 100 SEEN /hpf (0-5); Squamous Epithelial Cells - UA 10-25 SEEN /hpf (5-10); White Blood Cells 10-25 SEEN /hpf (0-5)
[2025-01-13 00:47] LABS: Anion Gap 15 (5-15); BUN 13 mg/dL (4-19); Calcium,Total 9.2 mg/dL (7.6-11.0); Carbon Dioxide 22.6 mmol/L (21.0-32.0); Chloride 101 mmol/L (98-108); Creatinine, Serum 0.96 mg/dL (0.70-1.20); EST Glomerular Filtration Rate 64 (>60); Estimated Creatinine Clearance 73.65 ml/min (50-250); Glucose 153 mg/dL (70-99); Potassium 3.6 mmol/L (3.3-5.1); Sodium Level 138 mmol/L (133-145)
[2025-01-13 01:00] VITALS: BP 128/81; PULSE 74; RESP 20; O2SAT 95
--- NOTE | 2025-01-13 01:08 | EX.ED.DYSGE1 ---
HPI History of Present Illness Chief Complaint: Flank Pain Informant: patient and spouse/S.O. Narrative Narrative: Patient is a 69-year-old female with past medical history of hypertension hyperlipidemia and [id number] type 2 diabetes. She was recently admitted to the hospital secondary to a large left-sided kidney stone and stent placement and then mild sepsis. She states she has been home for a few days and is scheduled to have lithotripsy on Monday. She states has been managing her pain with Tylenol and ibuprofen but that this evening the pain worsened and would not resolve with their xsmx-eja-[id number] medications and therefore she comes in for evaluation [facility] Medical History (Updated 01/13/25 @ 04:[address] Phillip Garcia, DO) Wears glasses Psoriasis History of steroid therapy Rheumatoid arthritis Arthritis Kidney stone High cholesterol Easy bruising Excessive bleeding Back pain Former smoker Gastric reflux CPAP (continuous positive airway pressure) dependence Shortness of breath on exertion Chronic cough History of edema History of stress test History of echocardiogram Hx of nasal polyp HLD (hyperlipidemia) HTN (hypertension) Diabetes Osteoarthritis Sleep apnea Home Medications ?Medication ?Instructions ?Recorded ?Last Taken ?Type aspirin 81 mg tablet,delayed 81 mg PO QHS heart health 08/21/15 01/08/25 History release (Adult Low Dose Aspirin) Held on 01/12/25. Instructions: surgery hydrochlorothiazide 12.5 mg capsule 12.5 mg PO DAILY diuretic 08/21/15 01/05/25 History metformin 500 mg tablet 1,000 mg PO BIDCM dm 08/21/15 01/05/25 History omega-3 fatty acids-fish oil 340 1 ea PO DAILY supplement 08/21/15 01/10/25 History mg-1,000 mg capsule (Fish Oil) Held on 01/12/25. Instructions: MD Ordered simvastatin 40 mg tablet 40 mg PO QHS cholesterol 08/21/15 01/04/25 History Held on 01/12/25. Instructions: MD Ordered biotin 1 mg capsule 1 mg PO DAILY pain 01/05/25 01/05/25 History cholecalciferol (vitamin D3) 50 2,000 unit PO DAILY supplement 01/05/25 01/05/25 History mcg (2,000 unit) tablet (Vitamin D3) glimepiride 1 mg tablet 0.5 mg PO DAILY dm 01/05/25 01/05/25 History hydroxychloroquine 200 mg tablet 400 mg PO DAILY INFLAMMATORY 01/05/25 01/05/25 History ARTHRITIS leucovorin calcium 5 mg tablet 5 mg PO QWEEK blood 01/05/25 01/01/25 History methotrexate sodium 2.5 mg tablet 25 mg PO QWEEK 01/05/25 01/01/25 History metoprolol succinate 50 mg 50 mg PO DAILY heart 01/05/25 01/05/25 History tablet,extended release 24 hr omeprazole 20 mg capsule,delayed 20 mg PO DAILY gerd 01/05/25 01/05/25 History release potassium chloride 10 mEq 10 meq PO DAILY supplment 01/05/25 01/05/25 History tablet,extended release prednisone 1 mg tablet 3 mg PO DAILY oa 01/05/25 01/05/25 History acetaminophen 500 mg capsule 500 mg PO Q4H PRN pain #20 caps 01/06/25 Unknown Rx ciprofloxacin HCl 500 mg tablet 500 mg PO BID #14 tabs 01/06/25 Unknown Rx (Cipro) ibuprofen 600 mg tablet 600 mg PO Q6H PRN pain #20 tabs 01/06/25 Unknown Rx phenazopyridine 100 mg tablet 100 mg PO TID PRN burning #14 tabs 01/06/25 Unknown Rx (Pyridium) ketorolac 10 mg tablet 10 mg PO 4X/DAY PRN pain 5 days 01/13/25 Unknown Rx #20 tabs oxycodone-acetaminophen 5 mg-325 1 - 2 tab PO Q6H PRN pain 3 days 01/13/25 Unknown Rx mg tablet (Percocet) #24 tabs Allergy/AdvReac Type Severity Reaction Status Date / Time lisinopril AdvReac COUGH Verified 01/12/25 23:12 Family History no significant family his Surgical History Hx of total hip arthroplasty History of cystoscopy Hip joint replacement status Social History Smoking Status: Former smoker ROS ROS ED Constitutional Constitutional ED: Denies chills or fever(s) ENT ENT ED: Denies sore throat Cardiovascular Cardiovascular: Denies chest pain Respiratory/Chest Respiratory/Chest: Denies cough or dyspnea Gastrointestinal Gastrointestinal: Reports abdominal pain and nausea; Denies diarrhea or vomiting Genitourinary Genitourinary ED: Denies dysuria Musculoskeletal Musculoskeletal: Reports back pain Integumentary Denies rash Neurologic Neurologic: Denies headache(s) Hematologic/Lymphatic Hematologic/Lymphatic: Denies easy bleeding or easy bruising EXAM Physical Exam Const Vital Signs: 01/12/25 23:13 01/13/25 00:12 01/13/25 01:00 Temperature 97.9 F Temperature Source Oral Pulse Rate 81 71 74 Respiratory Rate 24 H 20 H 20 H Blood Pressure 159/101 H 129/65 H 128/81 H Blood Pressure Mean 120 86 96 Pulse Ox 97 97 95 Oxygen Delivery Method Room Air Room Air Room Air 01/13/25 01:32 Temperature 98.0 F Temperature Source Pulse Rate 75 Respiratory Rate 20 H Blood Pressure 128/81 H Blood Pressure Mean 96 Pulse Ox 96 Oxygen Delivery Method Positive well nourished, well developed and obese General Appearance ED: well developed; Negative for pallor Nutritional Appearance: obese HEENT HEENT Narrative: Normocephalic atraumatic Eyes PERRL and EOMs intact bilaterally General Eye ED: Negative for scleral icterus Neck supple Neck Narrative: No nuchal rigidity or meningeal signs Resp normal respiratory effort and clear to auscultation bilaterally Resp Narrative: No nasal flaring retractions tachypnea or accessory muscle use No dyspnea with speech Cardio regular rate and regular rhythm Rate: other Other Details: Regular rate and rhythm without murmurs rubs or gallops Radial and carotid pulses are equal and symmetric GI non-distended and no masses GI Narrative: Abdomen is soft and nondistended with hypoactive bowel sounds. There is pain with palpation along the left lateral abdomen without voluntary guarding or rigidity No pulsatile mass or fluid wave No peritoneal signs Auscultation: hypoactive bowel sounds Palpation: soft Back/Spine Back/Spine Narrative: Positive left CVA pain noted Extremity normal to inspection Neuro oriented x3, CN's II-XII intact bilaterally and no sensory deficits noted Sensorium / Orientation: alert Motor Exam: strength 5/5 throughout Psych mental status grossly normal Skin no rashes or lesions noted General Skin Exam: Negative for jaundice or pallor MDM MDM MDM Narrative Medical decision making narrative: Patient presented to the ER hypertensive but has a past medical history of this and otherwise with stable vital. She has a known left-sided kidney stone that is scheduled for lithotripsy. Based on her history and exam patient is most likely having increased pain from the kidney stone. In order to ensure that she does not have an acute kidney injury repeat urosepsis or clinically significant electrolyte abnormality basic blood work with urine sample were obtained. I do not feel the need for repeat scan as we know she has a kidney stone that is large and will not be passed. Blood work showed no leukocytosis or left shift going against sepsis. Creatinine is normal going against MICHAEL. Urine sample shows +2 bacteria but there is contamination with 10-25 skin cells. Chart review reveals that her last urine sample from admission was pansensitive and she is currently on Cipro therefore I do not feel the need to change antibiotic or send this urine for culture. The patient was given IV fluids Toradol and morphine. On reevaluation she reported resolution of her pain and vitals also improved. I discussed with patient that she does not have MICHAEL or urosepsis so she does not need readmitted based on those facts but secondary to intractable pain we have grounds for potential placement. She states that she is feeling better at this time and would prefer to take prescription grade pain medication and go home and return for her scheduled lithotripsy on Monday. Therefore as patient is reporting resolution of her pain has stable vitals and overall negative workup and is requesting to be discharged I will place her on Toradol and Percocet. She agrees that if she develops a fever or her pain is not controlled with the prescribed medication that she will return to the ER for potential admission at that time History & Record Review Discussion w/independent historian: Patient and Significant other Lab Data Attestation: I reviewed the patient's lab results. Labs: Laboratory Results - last 24 hr 01/12/25 01/13/25 23:27 00:10 WBC 6.1 RBC 3.52 L Hgb 11.0 L Hct 32.7 L MCV 92.9 MCH 31.3 MCHC 33.6 RDW Std Deviation 45.2 H RDW Coeff of [employer] 13.6 Plt Count 220 MPV 9.9 Immature Gran % (Auto) 4.300 H Neut % (Auto) 55.8 Lymph % (Auto) 22.4 Marion % (Auto) 12.9 H Eos % (Auto) 3.3 Baso % (Auto) 1.3 H Absolute Neuts (auto) 3.4 Absolute Lymphs (auto) 1.37 Nucleated RBC % 0 Sodium 138 Potassium 3.6 Chloride 101 Carbon Dioxide 22.6 Anion Gap 15 BUN 13 Creatinine 0.96 Estim Creat Clear Calc 73.65 Est GFR (MDRD) Non-Af 64 BUN/Creatinine Ratio 13.0 Glucose 153 H Calcium 9.2 Urine Color Yellow Urine Clarity Cloudy Urine pH 6.0 Ur Specific Beaver 1.015 Urine Protein 100 H Urine Glucose (UA) Normal Urine Ketones Negative Urine Occult Blood 250 H Urine Nitrite Negative Urine Bilirubin 1 H Urine Urobilinogen Normal Ur Leukocyte Esterase 100 H Urine RBC > 100 SEEN Urine WBC 10-25 SEEN Ur Squamous Epith Cells 10-25 SEEN Urine Bacteria 2+ Urine Mucus 0 SEEN Discharge Plan Triage Chief Complaint: Flank Pain ED Provider: Phillip Garcia Dx/Rx/DC Orders Clinical Impression: Kidney stone, Renal colic, DM2 (diabetes mellitus, type 2), HTN (hypertension), Dyslipidemia Instructions: ED Kidney Stone with Pain Prescriptions: New ketorolac 10 mg tablet 10 mg PO 4X/DAY PRN (Reason: pain) 5 Days Qty: 20 0RF oxycodone-acetaminophen [Percocet] 5-325 mg tablet 1 - 2 tab PO Q6H PRN (Reason: pain) 3 Days Qty: 24 0RF No Action metformin 500 MG tablet 1,000 mg PO BIDCM Patient Comments: lowers blood sugar aspirin [Adult Low Dose Aspirin] 81 MG tablet,delayed release (DR/EC) 81 mg PO QHS Patient Comments: blood thinner simvastatin 40 MG tablet 40 mg PO QHS Patient Comments: lowers cholesterol hydrochlorothiazide 12.5 MG capsule 12.5 mg PO DAILY Patient Comments: blood pressure Fish Oil 1 EACH capsule 1 ea PO DAILY Patient Comments: supplement glimepiride 1 mg tablet 0.5 mg PO DAILY methotrexate sodium 2.5 mg tablet 25 mg PO QWEEK Patient Comments: taking every Mon for imflammatory arthritis hydroxychloroquine 200 mg tablet 400 mg PO DAILY potassium chloride 10 mEq tablet extended release 10 meq PO DAILY prednisone 1 mg tablet 3 mg PO DAILY omeprazole 20 mg capsule,delayed release(DR/EC) 20 mg PO DAILY metoprolol succinate 50 mg tablet extended release 24 hr 50 mg PO DAILY leucovorin calcium 5 mg tablet 5 mg PO QWEEK Patient Comments: Take on wednesdays cholecalciferol (vitamin D3) [Vitamin D3] 50 mcg (2,000 unit) tablet 2,000 unit PO DAILY biotin 1 mg capsule 1 mg PO DAILY ibuprofen 600 mg tablet 600 mg PO Q6H PRN (Reason: pain) Qty: 20 0RF acetaminophen 500 mg capsule 500 mg PO Q4H PRN (Reason: pain) Qty: 20 0RF phenazopyridine [Pyridium] 100 mg tablet 100 mg PO TID PRN (Reason: burning) Qty: 14 0RF ciprofloxacin HCl [Cipro] 500 mg tablet 500 mg PO BID Qty: 14 0RF Primary Care Provider: Malick Mccoy Referrals: Adithya Berrios MD [Med Staff - Active Staff] - (Kidney stone) Malick Mccoy MD [Primary Care Provider] - Activity Restrictions/Additional Instructions: Please stop taking the ibuprofen and begin using the Toradol for improved pain control. Take the Toradol and Percocet together for improved pain relief. If you develop a fever 100.4 or higher or the pain medications do not control your pain please return to the ER for repeat evaluation. Otherwise please follow-up with your urologist and obtain your lithotripsy as scheduled for this Monday. Print Language: Ecuadorean Disposition Disposition: Home, Self Care Discharge Date/Time: 01/13/25 01:48
[2025-01-13 01:32] VITALS: BP 128/81; PULSE 75; RESP 20; TEMP 36.7; O2SAT 96
[2025-01-13] MEDS: oxyCODONE 5 MG Tablet 10 MG PO (01:34)
== END 2025-01-13 01:48 | disposition home or self-care (01) ==
PROVIDERS: Emergency Provider Emergency Medicine; PCP Family Medicine; Visit Provider Emergency Medicine
DX: N20.0 Calculus of kidney (principal); E11.9 Type 2 diabetes mellitus without complications; E78.5 Hyperlipidemia, unspecified; Z87.891 Personal history of nicotine dependence; I10 Essential (primary) hypertension; Z99.89 Dependence on other enabling machines and devices; G47.30 Sleep apnea, unspecified; Z79.82 Long term (current) use of aspirin; E66.9 Obesity, unspecified
CPT/HCPCS: 80048; 81001; 85025; 99283; A4216; J2405

== ENCOUNTER 2025-01-15 11:46 | Day surgery (SDC) | payer MEDICARE, SELFPAY ==
--- NOTE | 2025-01-10 16:26 | PAT.ANESEVAL ---
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 When Was Last Pacemaker Check QUESTION #4 FULL TEXT: You/Your Family Experience fever (hyperthermia) with Anesthesia Last Oral Intake Last Oral intake: Last Oral Intake NPO since Meds taken in AM with sips of water? Meds patient instructed to take am of surgery PONV PONV - control systems technician: PONV - control systems technician Female Yes 01/10/25 10:01 HX of Motion Sickness No 01/10/25 10:01 HX of N/V After Surgery No 01/10/25 10:01 Non-Smoker Yes 01/10/25 10:01 Duration of Surgery greater No 01/10/25 10:01 than 60 minutes Number of Risk Factors 2 01/10/25 10:01 PONV Score Moderate Risk 01/10/25 10:01 Height & Weight Height & Weight: Anesthesia: Height & Weight Height 5 ft 7 in 01/06/25 09:57 Respiratory Assessment Respiratory Assessment - control systems technician: Respiratory Tract Infection Hx - control systems technician Hx Respiratory Tract Infection No 01/10/25 10:01 STOP Sleep Apnea STOP Sleep Apnea - control systems technician: STOP Sleep Apnea - control systems technician Hx Hypertension Yes: HYPOTENSION, MED HELD 01/10/25 10:01 TIL 01/13/2025 Hx Sleep Apnea Yes 01/10/25 10:01 CPAP Yes 01/10/25 10:01 BIPAP No 01/10/25 10:01 Do you snore loudly (louder than talking or can be heard Do you often feel tired/ fatigued/ sleepy during daytime? Has anyone observed you stop breathing during sleep? STOP Results Positive 01/10/25 10:01 QUESTION #5 FULL TEXT : Do you snore loudly (louder than talking or can be heard through closed doors)? 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 Specify any problems Hx of Preganancy in last 3 No 01/10/25 10:01 Months Nurse Filling Out Transfusion VCHRISTIN 01/10/25 10:01 & Questions: Date: 01/10/25 01/10/25 10:01 Time: 10:03 01/10/25 10:01 Patient unable to answer at this time (ie. confused, unrespo /Reproduction History /Reproductive History - control systems technician: /Reproductive Hx- control systems technician Hx Now No 01/10/25 10:01 Gestational Age (in weeks): EDC: Hx Hx Para Hx Section SAB No 01/10/25 10:01 [facility] Medical History (Updated 01/10/25 @ 10:01 by Breonna Patel) Wears glasses Psoriasis History of steroid therapy Rheumatoid arthritis Arthritis Kidney stone High cholesterol Easy bruising Excessive bleeding Back pain Former smoker Gastric reflux CPAP (continuous positive airway pressure) dependence Shortness of breath on exertion Chronic cough History of edema History of stress test History of echocardiogram Hx of nasal polyp HLD (hyperlipidemia) HTN (hypertension) Diabetes Osteoarthritis Sleep apnea Home Medications ?Medication ?Instructions ?Recorded ?Last Taken ?Type aspirin 81 mg tablet,delayed 81 mg PO QHS heart health 08/21/15 01/08/25 History release (Adult Low Dose Aspirin) hydrochlorothiazide 12.5 mg capsule 12.5 mg PO DAILY diuretic 08/21/15 01/05/25 History metformin 500 mg tablet 1,000 mg PO BIDCM dm 08/21/15 01/05/25 History omega-3 fatty acids-fish oil 340 1 ea PO DAILY supplement 08/21/15 01/10/25 History mg-1,000 mg capsule (Fish Oil) simvastatin 40 mg tablet 40 mg PO QHS cholesterol 08/21/15 01/04/25 History biotin 1 mg capsule 1 mg PO DAILY pain 01/05/25 01/05/25 History cholecalciferol (vitamin D3) 50 2,000 unit PO DAILY supplement 01/05/25 01/05/25 History mcg (2,000 unit) tablet (Vitamin D3) glimepiride 1 mg tablet 0.5 mg PO DAILY dm 01/05/25 01/05/25 History hydroxychloroquine 200 mg tablet 400 mg PO DAILY INFLAMMATORY 01/05/25 01/05/25 History ARTHRITIS leucovorin calcium 5 mg tablet 5 mg PO QWEEK blood 01/05/25 01/01/25 History losartan 50 mg tablet 50 mg PO DAILY bp 01/05/25 01/05/25 History Held on 01/09/25. Instructions: Resume on 01/13/25. methotrexate sodium 2.5 mg tablet 25 mg PO QWEEK 01/05/25 01/01/25 History metoprolol succinate 50 mg 50 mg PO DAILY heart 01/05/25 01/05/25 History tablet,extended release 24 hr omeprazole 20 mg capsule,delayed 20 mg PO DAILY gerd 01/05/25 01/05/25 History release potassium chloride 10 mEq 10 meq PO DAILY supplment 01/05/25 01/05/25 History tablet,extended release prednisone 1 mg tablet 3 mg PO DAILY oa 01/05/25 01/05/25 History acetaminophen 500 mg capsule 500 mg PO Q4H PRN pain #20 caps 01/06/25 Unknown Rx ciprofloxacin HCl 500 mg tablet 500 mg PO BID #14 tabs 01/06/25 Unknown Rx (Cipro) ibuprofen 600 mg tablet 600 mg PO Q6H PRN pain #20 tabs 01/06/25 Unknown Rx phenazopyridine 100 mg tablet 100 mg PO TID PRN burning #14 tabs 01/06/25 Unknown Rx (Pyridium) Allergy/AdvReac Type Severity Reaction Status Date / Time lisinopril AdvReac COUGH Verified 01/10/25 09:41 Family History no significant family his Surgical History (Updated 01/10/25 @ 10:01 by Breonna Patel) Hx of total hip arthroplasty History of cystoscopy Hip joint replacement status Social History Smoking Status: Former smoker Audit: Pertinent Findings Pertinent Findings EKG Perinent findings: 01/06/2025. Sinus tachycardia [address] and T wave abnormality consider lateral ischemia. (See echo below) Echo (EF%) pertinent findings: 01/07/2025. EF of 50 to 55%. No aortic stenosis noted. Recommendation Anesthesia Recommendation Anesthesia recommendation: OPTIMIZED for anesthesia
[2025-01-15] VITALS (10 sets, daily range): BP systolic 134–148; BP diastolic 55–75; PULSE 63–77; RESP 16–20; TEMP 36.2–36.6; O2SAT 92–97; BMI 40.7
[2025-01-15] MEDS: Lactated Ringers 1,000 ML 15 ML IV (12:00)
--- NOTE | 2025-01-15 12:05 | RAD_ITS ---
PROCEDURE: ABDOMEN SINGLE VIEW 01/15/2025 REASON FOR EXAM: SURGERY TECHNIQUE: Single view abdomen. COMPARISON: None. FINDINGS: There is a nonobstructive bowel gas pattern. There is a 10 mm calcification projecting over the lower pole of the left renal outline. There is a left-sided double-J ureteral stent in good position. There is multilevel degenerative disc disease of the lumbar spine with dextroscoliosis. There is a right total hip arthroplasty. RAD/Abdomen Single View IMPRESSION: 1. Left nephrolithiasis. 2. Left-sided double-J ureteral stent. 3. Other findings as noted. Reading Location: [id number]
--- NOTE | 2025-01-15 13:12 | PRE.ANES_ITS ---
ASA Classification* ASA Classification ASA Classification: 3 (Recent sepsis (acute pyelo), recent MICHAEL, DEBBIE, CAD, SOB HTN, HLD, T2DM, GERD) Assessment & Plan Anesthesia* Anesthesia Assessment Anesthesia Assessment: Discussed sedation and/or anesthesia options, risks, benefits, and alternatives with patient/parents/legal guardian/POA. Questions invited. The patient/parents/legal guardian/POA seems to understand and agrees to proceed with anesthesia plan. Reviewed the physical assessment, medical history, allergy history and patient home medications list prior to surgery/procedure/anesthetic and documented any changes. Performed airway and anesthesia risk assessments. Anesthesia Type Anesthesia Type: General History Source History Obtained from:: Patient and Chart Anesthesia Focused Assessment* Temperature: 97.4 F Pulse Rate: 63 Blood Pressure: 135/55 Respiratory Rate: 20 Pulse Ox: 96 Airway Assessment Mouth opens: >3 cm Mallampati Score: IV Focused Labs Anesthesia Preop lab: CBC WBC 6.1 K/mm3 (4.4-11.0) 01/12/25 23:01/12/25 RBC 3.52 M/mm3 (4.2-5.4) L 01/12/25 23:01/12/25 Hgb 11.0 g/dL (12.0-15.0) L 01/12/25 23: 5 Hct 32.7 % (37-47) L 01/12/25 23:01/12/25 Plt Count 220 K/mm3 (150-450) 01/12/25 23:01/12/25 CHEMISTRY Potassium 3.6 mmol/L (3.3-5.1) 01/12/25 23:01/12/25 Sodium 138 mmol/L (133-145) 01/12/25 23:01/12/25 BUN 13 mg/dL (4-19) 01/12/25 23:01/12/25 Creatinine 0.96 mg/dL (0.70-1.20) 01/12/25 23:01/12/25 Glucose 153 mg/dL (70-99) H 01/12/25 23:01/12/25 POC Glucose 126 mg/dL (74-106) H 01/09/25 06:01/09/25 COAG Pre-Assessment Diagnosis/Proposed Procedure Planned Operative Procedure(s): CYSTO, URETEROSCOPY, LASER STENT Anesthesia History 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 When Was Last Pacemaker Check QUESTION #4 FULL TEXT: You/Your Family Experience fever (hyperthermia) with Anesthesia Last Oral Intake Last Oral intake: Last Oral Intake NPO since 22:00 01/15/25 12:44 Meds taken in AM with sips of No 01/15/25 12:44 water? 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 technician Female Yes 01/10/25 10:01 HX of Motion Sickness No 01/10/25 10:01 HX of N/V After Surgery No 01/10/25 10:01 Non-Smoker Yes 01/10/25 10:01 Duration of Surgery greater No 01/10/25 10:01 than 60 minutes Number of Risk Factors 2 01/10/25 10:01 PONV Score Moderate Risk 01/10/25 10:01 Height & Weight Height & Weight: Anesthesia: Height & Weight Height 5 ft 7 in 01/15/25 12:44 Weight: 118 kg 01/15/25 12:44 Body Mass Index (BMI) 40.7 01/15/25 12:44 Respiratory Assessment Respiratory Assessment - geothermal hvac technician: Respiratory Tract Infection Hx - geothermal hvac technician Hx Respiratory Tract Infection No 01/10/25 10:01 STOP Sleep Apnea STOP Sleep Apnea - geothermal hvac technician: STOP Sleep Apnea - geothermal hvac technician Hx Hypertension Yes: HYPOTENSION, MED HELD 01/10/25 10:01 TIL 01/13/2025 Hx Sleep Apnea Yes 01/10/25 10:01 CPAP Yes 01/10/25 10:01 BIPAP No 01/10/25 10:01 Do you snore loudly (louder than talking or can be heard Do you often feel tired/ fatigued/ sleepy during daytime? Has anyone observed you stop breathing during sleep? STOP Results Positive 01/10/25 10:01 QUESTION #5 FULL TEXT : Do you snore loudly (louder than talking or can be heard through closed doors)? 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 Specify any problems Hx of Preganancy in last 3 No 01/10/25 10:01 Months Nurse Filling Out Transfusion VCHRISTIN 01/10/25 10:01 & Questions: Date: 01/10/25 01/10/25 10:01 Time: 10:03 01/10/25 10:01 Patient unable to answer at this time (ie. confused, unrespo /Reproduction History /Reproductive History - geothermal hvac technician: /Reproductive Hx- geothermal hvac technician Hx Now No 01/10/25 10:01 Gestational Age (in weeks): EDC: Hx Hx Para Hx Section SAB No 01/10/25 10:01 Active Medications Active Medications: Current Medications Generic Name Dose Route Start Last Admin Trade Name Freq PRN Reason Stop Dose Admin Cefazolin Sodium 3 gm/ Sodium 115 mls @ 150 mls/hr 01/15/25 14:00 Chloride IV 01/15/25 14:45 INTRAOP ONE Lactated Ringer's 1,000 mls @ 15 mls/hr 01/15/25 12:00 01/15/25 12:00 IV 15 mls/hr .Q48H [facility] History (Updated 01/13/25 @ 04:[address] Phillip Garcia, DO) Wears glasses Psoriasis History of steroid therapy Rheumatoid arthritis Arthritis Kidney stone High cholesterol Easy bruising Excessive bleeding Back pain Former smoker Gastric reflux CPAP (continuous positive airway pressure) dependence Shortness of breath on exertion Chronic cough History of edema History of stress test History of echocardiogram Hx of nasal polyp HLD (hyperlipidemia) HTN (hypertension) Diabetes Osteoarthritis Sleep apnea Home Medications ?Medication ?Instructions ?Recorded ?Last Taken ?Type aspirin 81 mg tablet,delayed 81 mg PO QHS heart health 08/21/15 01/09/25 History release (Adult Low Dose Aspirin) Held on 01/12/25. Instructions: surgery hydrochlorothiazide 12.5 mg capsule 12.5 mg PO DAILY d iuretic 08/21/15 01/14/25 History metformin 500 mg tablet 1,000 mg PO BIDCM dm 6 01/14/25 History omega-3 fatty acids-fish oil 340 1 ea PO DAILY supplem ent 08/21/15 01/10/25 History mg-1,000 mg capsule (Fish Oil) Held on 01/12/25. Instructions: MD Ordered simvastatin 40 mg tablet 40 mg PO QHS cholesterol 03/2901/14/25 History Held on 01/12/25. Instructions: MD Ordered biotin 1 mg capsule 1 mg PO DAILY pain 01/05/25 01/05/25 History cholecalciferol (vitamin D3) 50 2,000 unit PO DAILY ramos pplement 01/05/25 01/14/25 History mcg (2,000 unit) tablet (Vitamin D3) glimepiride 1 mg tablet 0.5 mg PO DAILY dm 01/05/25 01/14/25 History hydroxychloroquine 200 mg tablet 400 mg PO DAILY INFLA MMATORY 01/05/25 01/14/25 History ARTHRITIS leucovorin calcium 5 mg tablet 5 mg PO QWEEK blood 01/08/25 History methotrexate sodium 2.5 mg tablet 25 mg PO QWEEK 01/0501/08/25 History metoprolol succinate 50 mg 50 mg PO DAILY heart 01/15/25 History tablet,extended release 24 hr omeprazole 20 mg capsule,delayed 20 mg PO DAILY gerd 0 01/05/25 01/15/25 History release potassium chloride 10 mEq 10 meq PO DAILY supplment 01/05/25 History tablet,extended release prednisone 1 mg tablet 3 mg PO DAILY oa 01/05/25 History acetaminophen 500 mg capsule 500 mg PO Q4H PRN pain #2 0 caps 01/06/25 Unknown Rx ciprofloxacin HCl 500 mg tablet 500 mg PO BID #14 tabs 01/06/25 01/15/25 Rx (Cipro) ibuprofen 600 mg tablet 600 mg PO Q6H PRN pain #20 t abs 01/06/25 Unknown Rx phenazopyridine 100 mg tablet 100 mg PO TID PRN burnin g #14 tabs 01/06/25 01/09/25 Rx (Pyridium) ketorolac 10 mg tablet 10 mg PO 4X/DAY PRN pain 5 d ays 01/13/25 01/13/25 Rx #20 tabs oxycodone-acetaminophen 5 mg-325 1 - 2 tab PO Q6H PRN pain 3 days 01/13/25 01/14/25 Rx mg tablet (Percocet) #24 tabs Allergy/AdvReac Type Severity Reaction Status Date / Time lisinopril AdvReac COUGH Verified 01/15/25 12:41 Family History no significant family his Surgical History Hx of total hip arthroplasty History of cystoscopy Hip joint replacement status Social History Smoking Status: Former smoker Review of Systems (Anesthesia) ROS Narrative System reviewed and no additional complaints, except as documented. Physical Exam Const alert and oriented x3 Nutritional Appearance: morbidly obese Resp normal respiratory effort, normal air movement and clear to auscultation bilaterally Cardio regular rate, regular rhythm, no murmurs and diaphoretic
--- NOTE | 2025-01-15 13:34 | PCM.HP.STD ---
HPI - General General Date of Service: 01/15/25 Chief Complaint: Left kidney stone status post stent HPI Narrative SHAWN DIOP, is a 69 F who presents for treatment of a large stone that was in the proximal ureter she underwent cystoscopy and stent placement she did get septic after this was treated with IV antibiotics she has been on antibiotics to treat appropriately and now organ to proceed with shockwave lithotripsy on the left side no stent removal [facility] Medical History (Updated 01/13/25 @ 04:[address] Phillip Garcia, DO) Wears glasses Psoriasis History of steroid therapy Rheumatoid arthritis Arthritis Kidney stone High cholesterol Easy bruising Excessive bleeding Back pain Former smoker Gastric reflux CPAP (continuous positive airway pressure) dependence Shortness of breath on exertion Chronic cough History of edema History of stress test History of echocardiogram Hx of nasal polyp HLD (hyperlipidemia) HTN (hypertension) Diabetes Osteoarthritis Sleep apnea Home Medications ?Medication ?Instructions ?Recorded ?Last Taken ?Type aspirin 81 mg tablet,delayed 81 mg PO QHS heart health 08/21/15 01/09/25 History release (Adult Low Dose Aspirin) Held on 01/12/25. Instructions: surgery hydrochlorothiazide 12.5 mg capsule 12.5 mg PO DAILY diuretic 08/21/15 01/14/25 History metformin 500 mg tablet 1,000 mg PO BIDCM dm 08/21/15 01/14/25 History omega-3 fatty acids-fish oil 340 1 ea PO DAILY supplement 08/21/15 01/10/25 History mg-1,000 mg capsule (Fish Oil) Held on 01/12/25. Instructions: MD Ordered simvastatin 40 mg tablet 40 mg PO QHS cholesterol 08/21/15 01/14/25 History Held on 01/12/25. Instructions: MD Ordered biotin 1 mg capsule 1 mg PO DAILY pain 01/05/25 01/05/25 History cholecalciferol (vitamin D3) 50 2,000 unit PO DAILY supplement 01/05/25 01/14/25 History mcg (2,000 unit) tablet (Vitamin D3) glimepiride 1 mg tablet 0.5 mg PO DAILY dm 01/05/25 01/14/25 History hydroxychloroquine 200 mg tablet 400 mg PO DAILY INFLAMMATORY 01/05/25 01/14/25 History ARTHRITIS leucovorin calcium 5 mg tablet 5 mg PO QWEEK blood 01/05/25 01/08/25 History methotrexate sodium 2.5 mg tablet 25 mg PO QWEEK 01/05/25 01/08/25 History metoprolol succinate 50 mg 50 mg PO DAILY heart 01/05/25 01/15/25 History tablet,extended release 24 hr omeprazole 20 mg capsule,delayed 20 mg PO DAILY gerd 01/05/25 01/15/25 History release potassium chloride 10 mEq 10 meq PO DAILY supplment 01/05/25 01/05/25 History tablet,extended release prednisone 1 mg tablet 3 mg PO DAILY oa 01/05/25 01/15/25 History acetaminophen 500 mg capsule 500 mg PO Q4H PRN pain #20 caps 01/06/25 Unknown Rx ciprofloxacin HCl 500 mg tablet 500 mg PO BID #14 tabs 01/06/25 01/15/25 Rx (Cipro) ibuprofen 600 mg tablet 600 mg PO Q6H PRN pain #20 tabs 01/06/25 Unknown Rx phenazopyridine 100 mg tablet 100 mg PO TID PRN burning #14 tabs 01/06/25 01/09/25 Rx (Pyridium) ketorolac 10 mg tablet 10 mg PO 4X/DAY PRN pain 5 days 01/13/25 01/13/25 Rx #20 tabs oxycodone-acetaminophen 5 mg-325 1 - 2 tab PO Q6H PRN pain 3 days 01/13/25 01/14/25 Rx mg tablet (Percocet) #24 tabs Allergy/AdvReac Type Severity Reaction Status Date / Time lisinopril AdvReac COUGH Verified 01/15/25 12:41 Family History no significant family his Surgical History Hx of total hip arthroplasty History of cystoscopy Hip joint replacement status Social History Smoking Status: Former smoker Vital Signs Vital Signs Vital Signs: 01/15/25 12:44 01/15/25 12:44 01/15/25 13:15 Temperature 97.4 F L 97.4 F L Temperature Source Temporal Pulse Rate 63 63 Respiratory Rate 20 H 20 H Respiratory Pattern Normal Blood Pressure 135/55 H 135/55 H Blood Pressure Mean 81 Blood Pressure Source Monitor Blood Pressure Position Semi-Fowlers Blood Pressure Location Left Arm Pulse Ox 96 96 Oxygen Delivery Method Room Air Weight Weight: 118 kg Body Mass Index (BMI) 40.7 Results Imaging Radiology Impression KUB X-Ray 01/15/25 12:05 IMPRESSION: 1. Left nephrolithiasis. 2. Left-sided double-J ureteral stent. 3. Other findings as noted. Reading Location: [id number]
[2025-01-15] MEDS: Cefazolin 3 GM in 0.9% Normal Saline (100mL Bag) 100 ML IV (14:03)
--- NOTE | 2025-01-15 14:35 | PCM.DC ---
Discharge Instructions Diet Discharge Diet: No restrictions DC O2, CPAP, BIPAP needs Home O2 Discharge instructions: No Dressing / Incision Discharge Activity: Return to Normal Activity and May Not Drive (while taking narcotic pain medications.) Dressing / Incision Call your doctor if you observe: Fever of 101 or Higher Follow Up Care Please Follow Up With: Adithya Berrios MD When: Call [phone] for an appointment Test Results: Test results from this visit will be discussed in further detail at your follow-up appointment, if applicable. Discharge Plan Admission Primary Reason for Your Visit: kidney stone Attending Provider: Adithya Berrios Primary Care Provider: Malick Mccoy Instructions Print Language: Slovenian Discharge Orders/Prescriptions Prescriptions: Continued metformin 500 MG tablet 1,000 mg PO BIDCM Patient Comments: lowers blood sugar aspirin [Adult Low Dose Aspirin] 81 MG tablet,delayed release (DR/EC) 81 mg PO QHS Patient Comments: blood thinner simvastatin 40 MG tablet 40 mg PO QHS Patient Comments: lowers cholesterol hydrochlorothiazide 12.5 MG capsule 12.5 mg PO DAILY Patient Comments: blood pressure Fish Oil 1 EACH capsule 1 ea PO DAILY Patient Comments: supplement ketorolac 10 mg tablet 10 mg PO 4X/DAY PRN (Reason: pain) 5 Days Qty: 20 0RF oxycodone-acetaminophen [Percocet] 5-325 mg tablet 1 - 2 tab PO Q6H PRN (Reason: pain) 3 Days Qty: 24 0RF glimepiride 1 mg tablet 0.5 mg PO DAILY methotrexate sodium 2.5 mg tablet 25 mg PO QWEEK Patient Comments: taking every Mon for imflammatory arthritis hydroxychloroquine 200 mg tablet 400 mg PO DAILY potassium chloride 10 mEq tablet extended release 10 meq PO DAILY prednisone 1 mg tablet 3 mg PO DAILY omeprazole 20 mg capsule,delayed release(DR/EC) 20 mg PO DAILY metoprolol succinate 50 mg tablet extended release 24 hr 50 mg PO DAILY leucovorin calcium 5 mg tablet 5 mg PO QWEEK Patient Comments: Take on wednesdays cholecalciferol (vitamin D3) [Vitamin D3] 50 mcg (2,000 unit) tablet 2,000 unit PO DAILY biotin 1 mg capsule 1 mg PO DAILY ibuprofen 600 mg tablet 600 mg PO Q6H PRN (Reason: pain) Qty: 20 0RF acetaminophen 500 mg capsule 500 mg PO Q4H PRN (Reason: pain) Qty: 20 0RF phenazopyridine [Pyridium] 100 mg tablet 100 mg PO TID PRN (Reason: burning) Qty: 14 0RF ciprofloxacin HCl [Cipro] 500 mg tablet 500 mg PO BID Qty: 14 0RF Other Ambulatory Orders: Abdomen Single View (Routine) Timeframe: [id number] Facility: [facility] - Location: [facility] Ordered By: Dr. Adithya Berrios Referrals / Follow Up: Adithya Berrios MD [Med Staff - Active Staff] - Malick Mccoy MD [Primary Care Provider] - Disposition Disposition (needs filled in before D/C Order can be placed): Home, Self Care
--- NOTE | 2025-01-15 14:42 | PCM.OPRPT ---
Operative Report (Standard) Operative Information Date of Procedure: 01/15/25 Pre-Operative Diagnosis: left kidney stone Post-Operative Diagnosis: same Surgery/Procedure Performed: Left extracorporeal shockwave lithotripsy implementation specialist: No Type of Anesthesia: General RN Documented Start/Stop Times: Operation Date: 01/15/25 14:00 Case Time Into Pre-Op 01/15/25 12:30 Out of Pre-Op 01/15/25 13:53 Anesthesia Start 01/15/25 14:03 Into Room 01/15/25 14:03 Procedure Start 01/15/25 14:14 Procedure Start Time: 14:14 Procedure Stop Time: 14:52 Select all DRAINS/GRAFTS/IMPLANTS that apply: None and Drains Drain details: Left stent in place Estimated Blood Loss: 0 Specimen collected: No Description of surgery: Patient was taken back to the operating room at this induction of anesthesia placed supine on the lithotripter table we then identified the stone in the left kidney it was placed in the F2 focal point of the lithotripter machine commenced with lithotripter first shockwaves were delivered to the stone a low power then after 2-minute pause and then we continue with shockwave lithotripsy increasing the power of the cells 7 kV a total of 3000 shockwaves were delivered to the stone the stone broke up completely. Will follow-up next week for cystoscopy stent removal in the office. Surgical Findings: Stone broke up completely Complications Complications: No Admit VTE Documentation VTE Present on Admission: No VTE Mechan Device Prophylaxis: SCD's VTE Pharm Prophylaxis ordered?: No
--- NOTE | 2025-01-15 14:58 | PCM.POST.ANE ---
Anesthesia: Postop Eval I Current Vital Signs Temperature: 98 F Pulse Rate: 74 Blood Pressure: 144/60 Respiratory Rate: 16 Pulse Ox: 94 Oxygen Delivery Method: Room Air Assessment Airway patent: Yes Spontaneous unlabored respirations: Yes Mental status: Awake and Calm nausea: No Vomiting: No Anesthesia Complication: No Fluid Hydration Crystalloid volume administer (ml): 500 Total IV fluid infused: 500 Progress Note Anesthesia document: Postop Eval 1 completed: Yes
[2025-01-15 14:59] LABS: Bedside Glucose 111 mg/dL (74-106)
[2025-01-15] MEDS: Ketorolac 15 MG/ML Vial IV (15:03)
--- NOTE | 2025-01-15 15:39 | POSTOPAN2_ITS ---
Anesthesia Postop Eval I Sum Postop Eval Completion status Anesthesia document: Postop Eval 1 completed: Yes Anesthesia Postop Eval I Summary Anesthesia Postop Eval I Summary: Anesthesia Postop Eval I: Assessment Summary Airway patent Yes 01/15/25 14:59 [employer]PECTOR [employer]SEMBL[employer]ATIONS.MDOT Spontaneous unlabored Yes 01/15/25 14:59 [employer].MDOT respirations Mental status Awake,Calm 01/15/25 14:59 [employer].MDOT nausea No 01/15/25 14:59 [employer]OR [employer].MDOT Vomiting No 01/15/25 14:59 [employer]OR [employer]ATIONS.MDOT Anesthesia Postop Eval I: Fluid Summary Crystalloid volume administer 500 01/15/25 14:59 [employer]ATIONS.MDOT (ml) Colloids volume administered ( ml) Blood Product volume administered (ml) Total IV fluid infused 500 01/15/25 14:59 [employer]OR [employer]ATIONS.MDOT Anesthesia Postop Eval I: Summary Notes Anesthesia Complication No 01/15/25 14:59 [employer]OR [employer]ATIONS.MDOT Anesthesia Complication Comment: Post-operative progress note Anesthesia: Postop Eval II Evaluation Mental status: Awake Pain Level: 0 nausea: No Vomiting: No Complications Anesthesia Complication: No
--- NOTE | 2025-01-15 15:39 | PCM.POSTANE2 ---
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 Spontaneous unlabored Yes 01/15/25 14:59 CABINET WORKER.MDOT respirations Mental status Awake,Calm 01/15/25 14:59 CABINET WORKER.MDOT nausea No 01/15/25 14:59 CABINET WORKER.MDOT Vomiting No 01/15/25 14:59 CABINET WORKER.MDOT Anesthesia Postop Eval I: Fluid Summary Crystalloid volume administer 500 01/15/25 14:59 CABINET WORKER.MDOT (ml) Colloids volume administered ( ml) Blood Product volume administered (ml) Total IV fluid infused 500 01/15/25 14:59 CABINET WORKER.MDOT Anesthesia Postop Eval I: Summary Notes Anesthesia Complication No 01/15/25 14:59 CABINET WORKER.MDOT Anesthesia Complication Comment: Post-operative progress note Anesthesia: Postop Eval II Evaluation Mental status: Awake Pain Level: 0 nausea: No Vomiting: No Complications Anesthesia Complication: No
== END 2025-01-15 16:30 | disposition home or self-care (01) ==
LOC: SDC 11:50 → AC 11:52
PROVIDERS: PCP Family Medicine; Visit Provider Urology
PROC: (CPT 50590; principal; 2025-01-15 13:50)
DX: N20.0 Calculus of kidney (principal); M06.9 Rheumatoid arthritis, unspecified; E11.9 Type 2 diabetes mellitus without complications; Z79.84 Long term (current) use of oral hypoglycemic drugs; I10 Essential (primary) hypertension; Z87.891 Personal history of nicotine dependence; Z99.89 Dependence on other enabling machines and devices; G47.30 Sleep apnea, unspecified; E78.5 Hyperlipidemia, unspecified
CPT/HCPCS: 50590; 00873; 74018; 82962; A4216; J2405